=== PATIENT | male | born 1960 | race Caucasian/White ===

== ENCOUNTER → 2018-02-26 | Outpatient (CLI) | payer BC, OTHER ==
--- NOTE | 2018-02-26 22:15 | CT ---
EXAMINATION TYPE: CT abdomen pelvis w con DATE OF EXAM: 02/26/2018 COMPARISON: CT abdomen and pelvis February 23, 2016 HISTORY: Generalized abdominal pain x 1 year. Diverticulosis of intestine per order. CT DLP: 992 mGycm, Automated Exposure Control for Dose Reduction was Utilized. CONTRAST: CT scan of the abdomen and pelvis is performed with oral and with IV Contrast, patient injected with 100 mL of Isovue M300. FINDINGS: LUNG BASES: There is worsening anterior bibasilar linear scarring and/or atelectasis. LIVER/GB: The liver remains heterogeneously hypodense consistent with diffuse fatty infiltration. Gal lbladder has more superior left positioning on current study than normal dependent positioning. PANCREAS: Pancreatic duct is normal in size, duct is visualized but not suspiciously dilated. SPLEEN: No significant abnormality is seen. ADRENALS: No significant abnormality is seen. KIDNEYS: There is symmetric cortical medullary uptake and excretion from both kidneys without evidenc e of hydronephrosis bilaterally. There is subcentimeter low dense lesion exophytically medial aspect lower pole of the right kidney coronal image 42 that is diminished in size from prior exam. BOWEL: The oral contrast does not reach level of terminal ileum making evaluation of distal bowel sub optimal. There is persistent small to moderate size hiatal hernia. There is no suspicious small or la rge bowel dilatation. There are small bowel feces sign in terminal ileum consistent with delayed pass age of ingested material to colonic level. There are diverticula in the mid to distal colon most prom inent in the sigmoid colon. There is no convincing CT evidence for acute diverticulitis. PROSTATE/SEMINAL VESICLES: Central calcifications are seen in the upper limits of normal in size pros will gland. Adjacent phleboliths are seen. LYMPH NODES: No greater than 1cm abdominal or pelvic lymph nodes are appreciated. OSSEOUS STRUCTURES: There is mild multilevel spurring in the spine. OTHER: There is redemonstration of hazy fat stranding in the mid abdominal mesentery below level of t he pancreas with prominent but subcentimeter lymph nodes. IMPRESSION: 1. Karissa mesentery appearance is redemonstrated. Differential includes lymphedema, inflammation could be product of acute pancreatitis though this appears distinctly inferior to the normal sized pancrea s, neoplasm such as mesenteric lymphomas and differential, and mesenteric radiculitis. Other etiologi es not excluded. 2. Mid to distal colonic diverticulosis without CT evidence for acute diverticulitis.
== END ==
LOC: RADCTMAIN 17:59
PROVIDERS: ATTEND Family Medicine
DX: K57.90 Diverticulosis of intestine, part unspecified, without perforation or abscess without bleeding (principal)
CPT/HCPCS: 74177; Q9967

== ENCOUNTER 2019-05-09 19:16 | Inpatient (IN) | payer BC ==
--- NOTE | 2019-05-09 19:52 | ED ---
SOB HPI - General Chief Complaint: Shortness of Breath Stated Complaint: Bloated, needs fluid drained Time Seen by Provider: 05/09/19 19:23 Source: patient, RN notes reviewed, old records reviewed Mode of arrival: ambulatory Limitations: no limitations - History of Present Illness Initial Comments: This is a 58-year-old male date ER for evaluation patient with shortness of breath shortness breath is worse with exertion. Patient's everyday drinker with normal medical history does smoke and coming in for again shortness of breath. Abdominal distention ago is growing excessively as of late. Denies any history of medical disease or medical history. Takes no medications. No other complaints MD Complaint: shortness of breath (w exertion) -: days(s) Severity: moderate Severity scale (1-10): 7 Quality: dull (abdominal presure) Consistency: constant Improves With: nothing Worsens With: nothing Known History Of: other (ETOH abuse) Associated Symptoms: abdominal pain Treatments Prior to Arrival: none - Related Data Home Medications Medication Instructions Recorded Confirmed Folic Acid 0.4 mg PO DAILY 03/28/16 03/28/16 Allergies Allergy/AdvReac Type Severity Reaction Status Date / Time ragweed pollen Allergy Itching Verified 05/09/19 19:19 Review of Systems ROS Statement: Those systems with pertinent positive or pertinent negative responses have been documented in the HPI. ROS Other: All systems not noted in ROS Statement are negative. Past Medical History Past Medical History: No Reported History History of Any Multi-Drug Resistant Organisms: None Reported Past Surgical History: Orthopedic Surgery Additional Past Surgical History / Comment(s): ARTHRO OF LEFT KNEE Past Anesthesia/Blood Transfusion Reactions: Motion Sickness Past Psychological History: No Psychological Hx Reported Smoking Status: Current every day smoker Past Alcohol Use History: Daily, Heavy Past Drug Use History: None Reported General Exam Limitations: no limitations General appearance: alert, in no apparent distress Head exam: Present: atraumatic, normocephalic, normal inspection Eye exam: Present: normal appearance, PERRL, EOMI. Absent: scleral icterus, conjunctival injection, periorbital swelling ENT exam: Present: normal exam, mucous membranes moist Neck exam: Present: normal inspection. Absent: tenderness, meningismus, lympha denopathy Respiratory exam: Present: normal lung sounds bilaterally. Absent: respiratory distress, wheezes, rales, rhonchi, stridor Cardiovascular Exam: Present: normal rhythm, tachycardia, normal heart sounds. Absent: systolic murmur, diastolic murmur, rubs, gallop, clicks GI/Abdominal exam: Present: soft, distended, normal bowel sounds. Absent: tenderness, guarding, rebound, rigid Extremities exam: Present: normal inspection, full ROM, normal capillary refill. Absent: tenderness, pedal edema, joint swelling, calf tenderness Back exam: Present: normal inspection Neurological exam: Present: alert, oriented X3, CN II-XII intact Psychiatric exam: Present: normal affect, normal mood Skin exam: Present: warm, dry, intact, normal color. Absent: rash Course Vital Signs 05/09/19 05/09/19 19:17 21:02 Temperature 98.8 F Pulse Rate 107 H 80 Respiratory 20 16 Rate Blood Pressure 117/79 103/81 O2 Sat by Pulse 99 98 Oximetry - Reevaluation(s) Reevaluation #1: 05/09/19 21:50 Medical records reviewed Reevaluation #2: 05/09/19 21:50 She was still sniffly short of breath with significant abdominal pain - Consultations Consultation #1: Spoke with Dr. Clemons who was agreeable for admission Medical Decision Making - Medical Decision Making 58 male here for evaluation patient presents today for evaluation regards shortness of breath significant ascites likely will refer secondary all cause him. Patient will be admitted watching for a culture on GI evaluation - Lab Data Result diagrams: 05/09/19 20:07 05/09/19 20:07 Lab Results 05/09/19 05/09/19 05/09/19 Range/Units 20:07 20:07 20:07 WBC 8.4 (3.8-10.6) k/uL RBC 3.78 L (4.30-5.90) m/uL Hgb 12.6 L (13.0-17.5) gm/dL Hct 37.2 L (39.0-53.0) % MCV 98.6 (80.0-100.0) fL MCH 33.3 (25.0-35.0) pg MCHC 33.8 (31.0-37.0) g/dL RDW 13.7 (11.5-15.5) % Plt Count 314 (150-450) k/uL Neutrophils % 73 % Lymphocytes % 15 % Monocytes % 8 % Eosinophils % 0 % Basophils % 0 % Neutrophils # 6.1 (1.3-7.7) k/uL Lymphocytes # 1.2 (1.0-4.8) k/uL Monocytes # 0.7 (0-1.0) k/uL Eosinophils # 0.0 (0-0.7) k/uL Basophils # 0.0 (0-0.2) k/uL PT (9.0-12.0) sec INR (<1.2) APTT (22.0-30.0) sec Sodium 136 L (137-145) mmol/L Potassium 3.5 (3.5-5.1) mmol/L Chloride 99 (98-107) mmol/L Carbon Dioxide 26 (22-30) mmol/L Anion Gap 11 mmol/L BUN 13 (9-20) mg/dL Creatinine 0.54 L (0.66-1.25) mg/dL Est GFR (CKD-EPI)AfAm >90 (>60 ml/min/1.73 sqM) Est GFR (CKD-EPI)NonAf >90 (>60 ml/min/1.73 sqM) Glucose 111 H (74-99) mg/dL Calcium 8.6 (8.4-10.2) mg/dL Phosphorus 3.5 (2.5-4.5) mg/dL Magnesium 1.6 (1.6-2.3) mg/dL Total Bilirubin 1.1 (0.2-1.3) mg/dL AST 63 H (17-59) U/L ALT 27 (21-72) U/L Alkaline Phosphatase 90 (38-126) U/L Ammonia <9 (<30) umol/L Creatine Kinase 47 L (55-170) U/L Troponin I (0.000-0.034) ng/mL NT-Pro-B Natriuret Pep pg/mL Total Protein 6.9 (6.3-8.2) g/dL Albumin 3.4 L (3.5-5.0) g/dL Urine Color Urine Appearance (Clear) Urine pH (5.0-8.0) Ur Specific [place] (1.001-1.035) Urine Protein (Negative) Urine Glucose (UA) (Negative) Urine Ketones (Negative) Urine Blood (Negative) Urine Nitrite (Negative) Urine Bilirubin (Negative) Urine Urobilinogen (<2.0) mg/dL Ur Leukocyte Esterase (Negative) Urine RBC (0-5) /hpf Urine WBC (0-5) /hpf Ur Squamous Epith Cells (0-4) /hpf Calcium Oxalate Crystal (None) /hpf Hyaline Casts (0-2) /lpf Urine Mucus (None) /hpf 05/09/19 05/09/19 05/09/19 Range/Units 20:07 20:07 20:07 WBC (3.8-10.6) k/uL RBC (4.30-5.90) m/uL Hgb (13.0-17.5) gm/dL Hct (39.0-53.0) % MCV (80.0-100.0) fL MCH (25.0-35.0) pg MCHC (31.0-37.0) g/dL RDW (11.5-15.5) % Plt Count (150-450) k/uL Neutrophils % % Lymphocytes % % Monocytes % % Eosinophils % % Basophils % % Neutrophils # (1.3-7.7) k/uL Lymphocytes # (1.0-4.8) k/uL Monocytes # (0-1.0) k/uL Eosinophils # (0-0.7) k/uL Basophils # (0-0.2) k/uL PT 11.5 (9.0-12.0) sec INR 1.1 (<1.2) APTT 28.6 (22.0-30.0) sec Sodium (137-145) mmol/L Potassium (3.5-5.1) mmol/L Chloride (98-107) mmol/L Carbon Dioxide (22-30) mmol/L Anion Gap mmol/L BUN (9-20) mg/dL Creatinine (0.66-1.25) mg/dL Est GFR (CKD-EPI)AfAm (>60 ml/min/1.73 sqM) Est GFR (CKD-EPI)NonAf (>60 ml/min/1.73 sqM) Glucose (74-99) mg/dL Calcium (8.4-10.2) mg/dL Phosphorus (2.5-4.5) mg/dL Magnesium (1.6-2.3) mg/dL Total Bilirubin (0.2-1.3) mg/dL AST (17-59) U/L ALT (21-72) U/L Alkaline Phosphatase (38-126) U/L Ammonia (<30) umol/L Creatine Kinase (55-170) U/L Troponin I <0.012 (0.000-0.034) ng/mL NT-Pro-B Natriuret Pep 363 pg/mL Total Protein (6.3-8.2) g/dL Albumin (3.5-5.0) g/dL Urine Color Urine Appearance (Clear) Urine pH (5.0-8.0) Ur Specific Rosalia (1.001-1.035) Urine Protein (Negative) Urine Glucose (UA) (Negative) Urine Ketones (Negative) Urine Blood (Negative) Urine Nitrite (Negative) Urine Bilirubin (Negative) Urine Urobilinogen (<2.0) mg/dL Ur Leukocyte Esterase (Negative) Urine RBC (0-5) /hpf Urine WBC (0-5) /hpf Ur Squamous Epith Cells (0-4) /hpf Calcium Oxalate Crystal (None) /hpf Hyaline Casts (0-2) /lpf Urine Mucus (None) /hpf 05/09/19 Range/Units 20:07 WBC (3.8-10.6) k/uL RBC (4.30-5.90) m/uL Hgb (13.0-17.5) gm/dL Hct (39.0-53.0) % MCV (80.0-100.0) fL MCH (25.0-35.0) pg MCHC (31.0-37.0) g/dL RDW (11.5-15.5) % Plt Count (150-450) k/uL Neutrophils % % Lymphocytes % % Monocytes % % Eosinophils % % Basophils % % Neutrophils # (1.3-7.7) k/uL Lymphocytes # (1.0-4.8) k/uL Monocytes # (0-1.0) k/uL Eosinophils # (0-0.7) k/uL Basophils # (0-0.2) k/uL PT (9.0-12.0) sec INR (<1.2) APTT (22.0-30.0) sec Sodium (137-145) mmol/L Potassium (3.5-5.1) mmol/L Chloride (98-107) mmol/L Carbon Dioxide (22-30) mmol/L Anion Gap mmol/L BUN (9-20) mg/dL Creatinine (0.66-1.25) mg/dL Est GFR (CKD-EPI)AfAm (>60 ml/min/1.73 sqM) Est GFR (CKD-EPI)NonAf (>60 ml/min/1.73 sqM) Glucose (74-99) mg/dL Calcium (8.4-10.2) mg/dL Phosphorus (2.5-4.5) mg/dL Magnesium (1.6-2.3) mg/dL Total Bilirubin (0.2-1.3) mg/dL AST (17-59) U/L ALT (21-72) U/L Alkaline Phosphatase (38-126) U/L Ammonia (<30) umol/L Creatine Kinase (55-170) U/L Troponin I (0.000-0.034) ng/mL NT-Pro-B Natriuret Pep pg/mL Total Protein (6.3-8.2) g/dL Albumin (3.5-5.0) g/dL Urine Color [place] Urine Appearance Clear (Clear) Urine pH 6.0 (5.0-8.0) Ur Specific Rosalia 1.031 (1.001-1.035) Urine Protein 1+ H (Negative) Urine Glucose (UA) Negative (Negative) Urine Ketones Trace H (Negative) Urine Blood Negative (Negative) Urine Nitrite Negative (Negative) Urine Bilirubin 1+ H (Negative) Urine Urobilinogen >12.0 (<2.0) mg/dL Ur Leukocyte Esterase Negative (Negative) Urine RBC <1 (0-5) /hpf Urine WBC 2 (0-5) /hpf Ur Squamous Epith Cells 2 (0-4) /hpf Calcium Oxalate Crystal Occasional H (None) /hpf Hyaline Casts 7 H (0-2) /lpf Urine Mucus Many H (None) /hpf - EKG Data -: EKG Interpreted by Me (EKG shows sinus rhythm rate of 94, IN 140, temperature is 90, QTc 447) Disposition Clinical Impression: Ascites Disposition: ADMITTED IP TO THIS HOSP Condition: Fair Is patient prescribed a controlled substance at d/c from ED?: No Referrals: Emilie Hoover DO [Primary Care Provider] - 1-2 days
[2019-05-09 20:16] LABS: Basophils % (A) 0 %; Eosinophils % (A) 0 %; HCT 37.2 % (39.0-53.0); HGB 12.6 gm/dL (13.0-17.5); Lymphocytes # (A) 1.2 k/uL (1.0-4.8); Lymphocytes % (A) 15 %; MCH 33.3 pg (25.0-35.0); MCHC 33.8 g/dL (31.0-37.0); MCV 98.6 fL (80.0-100.0); Mean Platelet Volume 7.1; Monocytes # (A) 0.7 k/uL (0-1.0); Monocytes % (A) 8 %; Neutrophils # (A) 6.1 k/uL (1.3-7.7); Neutrophils % (A) 73 %; Platelet Count 314 k/uL (150-450); RBC 3.78 m/uL (4.30-5.90); RDW 13.7 % (11.5-15.5); WBC 8.4 k/uL (3.8-10.6)
[2019-05-09 20:26] LABS: ALT 27 U/L (21-72); AST 63 U/L (17-59); African American GFR (CKD) >90 (>60 ml/min/1.73 sqM); Albumin 3.4 g/dL (3.5-5.0); Alkaline Phosphatase 90 U/L (38-126); Anion Gap 11 mmol/L; Blood Urea Nitrogen 13 mg/dL (9-20); Calcium 8.6 mg/dL (8.4-10.2); Carbon Dioxide 26 mmol/L (22-30); Chloride 99 mmol/L (98-107); Creatine Kinase 47 U/L (55-170); Glucose 111 mg/dL (74-99); Magnesium 1.6 mg/dL (1.6-2.3); Non-African American GFR(CKD) >90 (>60 ml/min/1.73 sqM); Phosphorus 3.5 mg/dL (2.5-4.5); Potassium 3.5 mmol/L (3.5-5.1); Sodium 136 mmol/L (137-145); Total Bilirubin 1.1 mg/dL (0.2-1.3); Total Protein 6.9 g/dL (6.3-8.2)
[2019-05-09 20:28] LABS: Appearance,Urine Clear (Clear); Bilirubin,Urine 1+ (Negative); Blood,Urine Negative (Negative); Calcium Oxalate Crystals,Urine Occasional /hpf; Color,Urine Orange; Glucose,Urine (UA) Negative (Negative); Hyaline Casts,Urine 7 /lpf (0-2); Ketones,Urine Trace (Negative); Leukocyte Esterase,Urine Negative (Negative); Mucus,Urine Many /hpf; Nitrite,Urine Negative (Negative); Protein,Urine 1+ (Negative); RBC,Urine <1 /hpf (0-5); Specific Gravity,Urine 1.031 (1.001-1.035); Squamous Epithelial Cell,Urine 2 /hpf (0-4); Urobilinogen,Urine >12.0 mg/dL (<2.0); WBC,Urine 2 /hpf (0-5)
[2019-05-09 20:35] LABS: INR 1.1 (<1.2); Partial Thromboplastin Time 28.6 sec (22.0-30.0); Prothrombin Time 11.5 sec (9.0-12.0)
--- NOTE | 2019-05-09 20:55 | XR ---
EXAMINATION: XR chest 2V DATE AND TIME: 05/09/2019 8:25 PM CLINICAL INDICATION: PHH; Weakness TECHNIQUE: Departmental protocol COMPARISON: 11/14/2010 FINDINGS: The lungs are clear. The pleural spaces are negative. The cardiac silhouette is not enlarged. The remainder of the mediastinal silhouette is unremarkable. The skeletal structures and soft tissues are negative for acute findings. IMPRESSION: NO ACUTE PROCESS.
[2019-05-09] MEDS ORDERED: THIAMINE 100 MG/ML 2 ML VIAL IM STA (21:45)
[2019-05-09] MEDS ORDERED: LORazepam 2 MG/ML INJ IV PRN ×2 (21:45)
[2019-05-09] MEDS ORDERED: ONDANSETRON 4 MG/2 ML VIAL IVP STA (21:45)
[2019-05-09] MEDS: THIAMINE 100 MG TAB PO SCH (21:52)
[2019-05-09] MEDS ORDERED: IPRATROPIUM-ALBUTEROL 3 ML NEB INHALATION PRN (21:52)
[2019-05-09] MEDS ORDERED: IPRATROPIUM-ALBUTEROL 3 ML NEB INHALATION STA (21:52)
[2019-05-09] MEDS: DEXTROSE 5%-0.45% NACL 1,000 ML IV SCH (22:05)
[2019-05-09] MEDS ORDERED: NICOTINE 21MG/24HR PATCH TRANSDERM STA (22:07)
[2019-05-09] MEDS: LORazepam 2 MG/ML INJ IV PRN (22:13)
[2019-05-10] MEDS: THIAMINE 100 MG TAB PO SCH ×2 (08:01→17:49)
[2019-05-10] MEDS ORDERED: ENOXAPARIN 40 MG/0.4 ML SYRINGE SQ SCH (09:00)
[2019-05-10] MEDS: DEXTROSE 5%-0.45% NACL 1,000 ML IV SCH (10:47)
[2019-05-10] MEDS ORDERED: cloNIDine HCL 0.1 MG TAB PO PRN (11:06)
--- NOTE | 2019-05-10 11:08 | P.HPIM ---
History of Present Illness H&P Date: 05/10/19 Chief Complaint: dyspnea, abd distention Edwin Salomon is a 58 yo M with PMH of alcholism who presents to the ED complaining of 2 month duration of increasing abdominal distention and shortness of breath. He initially presented to the outpatient clinic and was advised to go to the ED. He has no other past medical history. Pt states that he has drank a fifth of whiskey daily for over 20 years. He states at various points in his life he as drank slightly more or less but has continued to be a daily drinker, endorses withdrawal sx every morning. He notes that his abdomen has become more swollen over the past few months and he has had little appetite for anything other than alcohol. Pt feels he is not able to take a deep breath due to his swelling. He complains of nausea as well. Has never had an EGD or seen GI. In the ED his vitals were stable, labs significant for mildly elevated AST, Hgb 12, albumin 3.4, INR 1.1. Review of Systems All systems: negative Constitutional: Reports fatigue, Reports malaise, Reports night sweats, Reports poor appetite, Denies chills, Denies fever Eyes: denies blurred vision, denies pain Ears, nose, mouth and throat: Denies headache, Denies sore throat Cardiovascular: Denies chest pain, Denies shortness of breath Respiratory: Denies cough Gastrointestinal: Reports as per HPI, Reports abdominal pain, Reports early satiety, Reports loss of appetite, Reports nausea, Denies diarrhea, Denies hematemesis, Denies vomiting Musculoskeletal: Denies myalgias Integumentary: Denies pruritus, Denies rash Neurological: Denies numbness, Denies weakness Psychiatric: Denies anxiety, Denies depression Endocrine: Denies fatigue, Denies weight change Past Medical History Past Medical History: No Reported History History of Any Multi-Drug Resistant Organisms: None Reported Past Surgical History: Orthopedic Surgery Additional Past Surgical History / Comment(s): ARTHRO OF LEFT KNEE Past Anesthesia/Blood Transfusion Reactions: Motion Sickness Past Psychological History: No Psychological Hx Reported Smoking Status: Current every day smoker Past Alcohol Use History: Daily, Heavy Additional Past Alcohol Use History / Comment(s): SMOKED SINCE 11 YRS, LESS THAN 2 PPD. PATIENT ADMITS TO BEING AN ALCOHOLIC (A FIFTH A DAY). Past Drug Use History: None Reported - Past Family History Mother Family Medical History: No Reported History Medications and Allergies Home Medications Medication Instructions Recorded Confirmed Type Ensure 1 can PO BID 05/09/19 05/09/19 History Allergies Allergy/AdvReac Type Severity Reaction Status Date / Time ragweed pollen Allergy Itching Verified 05/09/19 22:03 Physical Exam Vitals: Vital Signs Temp Pulse Pulse Resp BP BP Pulse Ox 05/10/19 05:35 97.7 F 106 H 17 104/55 95 05/10/19 00:00 20 05/09/19 23:00 98.2 F 93 20 109/69 05/09/19 22:32 101 H 18 05/09/19 22:26 101 H 16 05/09/19 21:48 97 18 110/95 97 05/09/19 21:02 80 16 103/81 98 05/09/19 19:17 98.8 F 107 H 20 117/79 99 Intake and Output 05/09/19 05/10/19 05/10/19 22:59 06:59 14:59 Intake Total 480 Balance 480 Intake: Intake, IV Titration 480 Amount Dextrose 5%-0.45% NaCl 1, 480 000 ml @ 80 mls/hr IV . [id number] [facility] Rx#:[id number] Oral 0 Other: Voiding Method Urinal # Voids 1 Weight 78.018 kg General: anasarca, NAD. Vitals reviewed Eyes: PERRL, EOMI, conjunctiva normal. No scleral icterus HENT: normocephalic, mucus membranes moist Neck: supple, no JVD Lungs: normal respiratory effort, no wheezes or rales CV: Regular rate and rhythm, no murmur. Peripheral pulses 2+ Abdomen: soft, distended. Generalized tenderness. Fluid wave present Lymph: no cervical or axillary LAD Skin: warm and dry. Neuro: A&Ox3, normal mood and affect Results CBC & Chem 7: 05/09/19 20:07 05/09/19 20:07 Labs: Abnormal Lab Results - Last 24 Hours (Table) 05/09/19 05/09/19 05/09/19 Range/Units 20:07 20:07 20:07 RBC 3.78 L (4.30-5.90) m/uL Hgb 12.6 L (13.0-17.5) gm/dL Hct 37.2 L (39.0-53.0) % Sodium 136 L (137-145) mmol/L Creatinine 0.54 L (0.66-1.25) mg/dL Glucose 111 H (74-99) mg/dL AST 63 H (17-59) U/L Creatine Kinase 47 L (55-170) U/L Albumin 3.4 L (3.5-5.0) g/dL Urine Protein 1+ H (Negative) Urine Ketones Trace H (Negative) Urine Bilirubin 1+ H (Negative) Calcium Oxalate Crystal Occasional H (None) /hpf Hyaline Casts 7 H (0-2) /lpf Urine Mucus Many H (None) /hpf Thrombosis Risk Factor Assmnt - Choose All That Apply Any of the Below Risk Factors Present?: Yes Each Factor Represents 1 point: Age 41-60 years, Swollen legs (current) Thrombosis Risk Factor Assessment Total Risk Factor Score: 2 Thrombosis Risk Factor Assessment Level: Low Risk Assessment and Plan (1) Alcoholic cirrhosis of liver with ascites Current Visit: Yes Status: Acute Code(s): K70.31 - ALCOHOLIC CIRRHOSIS OF LIVER WITH ASCITES SNOMED Code(s): 741332188 (2) Abdominal pain Current Visit: Yes Status: Acute Code(s): R10.9 - UNSPECIFIED ABDOMINAL PAIN SNOMED Code(s): 97913358 (3) Anemia in chronic illness Current Visit: Yes Status: Acute Code(s): D63.8 - ANEMIA IN OTHER CHRONIC DISEASES CLASSIFIED ELSEWHERE SNOMED Code(s): 775906999 (4) Elevated AST (SGOT) Current Visit: Yes Status: Acute Code(s): R74.0 - NONSPEC ELEV OF LEVELS OF TRANSAMNS & LACTIC ACID DEHYDRGNSE SNOMED Code(s): 067836855 (5) Alcohol withdrawal Current Visit: Yes Status: Acute Code(s): F10.239 - ALCOHOL DEPENDENCE WITH WITHDRAWAL, UNSPECIFIED SNOMED Code(s): 832056428 Plan: 1. Cirrhosis of liver with ascites. PPI bid. IR consulted for paracentesis. GI consult for further recs 2. Alcohol withdrawal. CIWA protocol. Clonidine symptomatically DVT prophylaxis SCDs
[2019-05-10] MEDS: ONDANSETRON 4 MG/2 ML VIAL IVP PRN (11:19)
[2019-05-10] MEDS: PANTOPRAZOLE 40 MG TABLET PO SCH ×2 (11:19→16:53)
--- NOTE | 2019-05-10 15:58 | US ---
Therapeutic paracentesis. DATE OF EXAM: 05/10/2019 CLINICAL HISTORY: Ascites The procedure was discussed with the patient. The risks, complications, benefits, and alternatives we re discussed and any questions were answered. Informed consent was obtained. The patient was placed s upine on the ultrasound table and prepped and draped in the usual sterile fashion. All elements of maximal barrier technique were utilized. Under ultrasound guidance, access into the right lower quadrant was obtained, via the paracentesis catheter system and direct ultrasound guidanc e. Approximately 7 liters of straw-colored fluid was removed. The patient was stable throughout the proc edure and remained stable upon discharge from Department of Radiology. IMPRESSION: Successful therapeutic paracentesis under ultrasound guidance.
[2019-05-10] MEDS: ALBUMIN HUMAN 25% 50 ML in EMPTY BAG 1 BAG IVPB SCH ×3 (16:51→17:45)
[2019-05-10 18:30] LABS: Appearance,BF Clear
[2019-05-10 18:31] LABS: Mononuclear WBC,Body Fluid 94 %; Nucleated Cells, Body Fluid 38 /uL; Polynuclear WBC,Body Fluid 6 %; RBC, Body Fluid 76 /uL; Total Cells Counted,Body Fluid 100
--- NOTE | 2019-05-10 21:45 | CONS ---
CONSULTATION DATE OF DICTATION: 05/10/2019 REASON FOR CONSULTATION: Ascites. HISTORY OF PRESENT ILLNESS: The patient is a 58-year-old white male with history of heavy alcoholism in the past who drinks about a fifth a day for the last several years. He was admitted to the hospital with abdominal distention for the last several weeks' duration. He also complains of shortness of breath. He came into the emergency room and we are consulted for possible ascites. The patient denies any prior history of chronic liver disease. He has been drinking almost a fifth a day for 30 years. He recalls having a colonoscopy about 5 years ago but never had an EGD in the past. He denies any nausea, vomiting. Reports no rectal bleeding or melena. PAST MEDICAL HISTORY: His past medical history is significant for heavy alcohol abuse. He has not seen doctors in a while. PAST SURGICAL HISTORY: Arthroscopy of the left knee. MEDICATIONS AT HOME: None. ALLERGIES: NO KNOWN DRUG ALLERGIES. SOCIAL HISTORY: Chronic smoker and alcohol use as mentioned above. FAMILY HISTORY: Unremarkable. REVIEW OF SYSTEMS: CARDIOPULMONARY: No chest pain or shortness of breath. GENITOURINARY: No dysuria or hematuria. MUSCULOSKELETAL: Unremarkable. SKIN: Unremarkable. ENDOCRINE: Unremarkable. PSYCHIATRIC: Unremarkable. NEUROLOGY: Unremarkable. ENT/VISION: Unremarkable. CONSTITUTIONAL: No recent weight loss. No fever, chills, night sweats. PHYSICAL EXAMINATION: He appears comfortable. No apparent distress. Vital signs are stable. Blood pressure is 111/60, pulse rate 80, temperature 98.4. HEENT examination unremarkable. Conjunctivae pink. Sclerae anicteric. Oral cavity no lesions. NECK: No JVD or lymph node enlargement. CHEST: Clear to auscultation. HEART: Regular rate and rhythm. ABDOMEN: Distended. Significant amount of free fluid noted in the abdomen. Liver and spleen are not palpable. EXTREMITIES: Two plus pedal edema. SKIN: No rashes. NEUROLOGIC: Alert and oriented x3. No focal deficits. LABS: WBC 8.4, hemoglobin 12.6, platelets normal. Basic metabolic panel is within normal limits. INR is 1.1. AST 63, ALT 27. T-bilirubin and alkaline phosphatase are normal. IMPRESSION: 1. Abdominal distention secondary to new-onset ascites, possibly related to alcoholic liver disease. 2. History of heavy alcohol abuse. 3. Mild elevation of liver function tests with AST more than ALT, consistent with alcoholic liver disease. 4. Mild anemia, but clinically no evidence of active bleeding. RECOMMENDATIONS: 1. Patient will be scheduled for large-volume paracentesis for diagnostic and therapeutic purposes. The fluid will be analyzed for albumin, cytology, cell count and protein. 2. In the meantime, we will start him on Lasix 40 mg daily and Aldactone 100 mg daily. 3. Low-salt diet. 4. Hepatitis serologies for A, B and C. 5. Will follow with you closely. Thank you for this consultation. MMODL / IJN: [id number] /
[2019-05-10 22:13] LABS: Hepatitis A Antibody IgM Non-Reactive (Non-Reactive); Hepatitis B Core IgM Non-Reactive (Non-Reactive); Hepatitis B Surface Antigen Non-Reactive (Non-Reactive); Hepatitis C IgG Antibody Reactive (Non-Reactive)
[2019-05-10 23:51] LABS: Glucose, BF Source Ascites; Glucose, Body Fluid 120 mg/dL; LDH, Body Fluid Source Ascites
[2019-05-11 00:41] LABS: Total Protein, Body Fluid 1861 mg/dL
[2019-05-11] MEDS: DEXTROSE 5%-0.45% NACL 1,000 ML IV SCH ×2 (00:55→14:49)
[2019-05-11 07:56] LABS: ALT 27 U/L (21-72); AST 52 U/L (17-59); African American GFR (CKD) >90 (>60 ml/min/1.73 sqM); Albumin 2.6 g/dL (3.5-5.0); Alkaline Phosphatase 59 U/L (38-126); Anion Gap 7 mmol/L; Blood Urea Nitrogen 8 mg/dL (9-20); Calcium 7.9 mg/dL (8.4-10.2); Carbon Dioxide 25 mmol/L (22-30); Chloride 101 mmol/L (98-107); Glucose 125 mg/dL (74-99); Non-African American GFR(CKD) >90 (>60 ml/min/1.73 sqM); Potassium 3.2 mmol/L (3.5-5.1); Sodium 133 mmol/L (137-145); Total Bilirubin 1.1 mg/dL (0.2-1.3); Total Protein 5.4 g/dL (6.3-8.2)
[2019-05-11] MEDS: FUROSEMIDE 40 MG TAB PO SCH (09:11)
[2019-05-11] MEDS: SPIRONOLACTONE 25 MG TAB PO SCH (09:11)
[2019-05-11] MEDS: THIAMINE 100 MG TAB PO SCH ×2 (09:11→17:02)
[2019-05-11] MEDS: PANTOPRAZOLE 40 MG TABLET PO SCH ×2 (09:11→17:02)
[2019-05-11] MEDS: LORazepam 2 MG/ML INJ IV PRN ×2 (09:21→22:31)
[2019-05-11] MEDS: ONDANSETRON 4 MG/2 ML VIAL IVP PRN (09:21)
--- NOTE | 2019-05-11 10:32 | PN ---
PROGRESS NOTE DATE OF DICTATION: May 11, 2019. REQUESTING PHYSICIAN: Dr. Bartolo Clemons. BRIEF HISTORY: The patient is a 58-year-old pleasant white male with history of alcoholic cirrhosis of the liver, admitted to the hospital with new onset ascites. He underwent large-volume paracentesis yesterday and several liters removed. He was started on Lasix 40 mg daily and Aldactone 100 mg daily. He is feeling better today. He denies any complaints. Reports no abdominal pain. No fever, chills, or night sweats. PHYSICAL EXAMINATION: He appears comfortable. No apparent distress. VITAL SIGNS: Stable. Blood pressure is 108/86, pulse rate 84 per minute and afebrile. HEENT examination unremarkable. Conjunctivae pink. Sclerae anicteric. Oral cavity no lesions. NECK: No JVD or lymph node enlargement. CHEST was clear to auscultation. HEART: Regular rate and rhythm. ABDOMEN: Soft. Bowel sounds are positive. There was some free fluid noted in the abdomen. EXTREMITIES: No pedal edema. SKIN: No rashes. NEURO: He is alert and oriented x3. No focal deficits. LABS: From lab from today: WBC 8.4, hemoglobin 12.6, platelets normal. Sodium 133, potassium 3.2, BUN 8, creatinine 0.47. Fluid analysis: Fluid albumin 1.20, fluid protein 1.8, WBC 6. Serum albumin was 3.4. Serum ascites albumin gradient more than 1.1. Hepatitis serologies for C were positive. Hepatitis B was negative. IMPRESSION: 1. Alcoholic cirrhosis of the liver with portal hypertension. 2. New onset ascites status post large-volume paracentesis, several liters of fluid was removed for fluid analysis consistent with portal hypertension. No evidence of peritonitis. Presently on Lasix 40 mg daily and Aldactone 100 mg daily and low-salt diet. 3. Positive hepatitis C antibody. Rule out chronic hepatitis C infection. RECOMMENDATIONS: 1. Abstinence from alcohol. 2. Continue current diuretic regimen. 3. Low-salt diet. 4. Obtain hepatitis C HCV RNA by PCR to evaluate for chronic hepatitis C infection. Thank you for this consultation. MMODL / IJN: [id number] /
[2019-05-11 12:35] LABS: Appearance,Urine Clear (Clear); Bilirubin,Urine Negative (Negative); Blood,Urine Negative (Negative); Color,Urine Yellow; Glucose,Urine (UA) Negative (Negative); Ketones,Urine Negative (Negative); Leukocyte Esterase,Urine Negative (Negative); Nitrite,Urine Negative (Negative); PH, Urine 6.5 (5.0-8.0); Protein,Urine Negative (Negative); Specific Gravity,Urine 1.009 (1.001-1.035)
[2019-05-11 12:42] VITALS: BMI 23.3
--- NOTE | 2019-05-11 13:07 | P.PN ---
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 Clemons over the weekend. Mr. Salomon is a 58-year-old male with a past medical history of alcoholism coming into the emergency Department with the chief complaint of increasing abdominal girth and difficulty in breathing. Patient has history of alcohol dependence. In the emergency he was found to have mildly elevated liver function tests and admitted for further management. On 05/11/2019 - patient had paracentesis done yesterday with removal of 7040 mL fluid. Patient received albumin after the paracentesis. This morning he is sitting comfortably in the bed appears to be no acute distress. As per the nursing staff report that his decreased urinary output. Patient made only 30-40 mL of urine since this morning. Patient states that he is not having any complaints of dysuria, mentions that he always has blood in his urine and it is pink in color. Patient denies having any lower abdominal pain or flank pain. No fevers chills or rigors. On review of systems he denies having any chest pain or palpitations. No nausea vomiting or abdominal pain. After the paracentesis he feels much better in terms of his difficulty in breathing. Patient denies having any swelling of his lower extremities. Patient's labs and medications have been reviewed. Active Medications Albuterol/Ipratropium (Duoneb 0.5 Mg-3 Mg/3 Ml Soln) 3 ml INHALATION RT-QID PRN PRN Reason: Shortness Of Breath Or Wheezing Clonidine (Catapres) 0.1 mg PO BID PRN PRN Reason: Heart Rate - HIGH Furosemide (Lasix) 40 mg PO DAILY [facility] Last Admin: 05/11/19 09:11 Dose: 40 mg Documented by: Dextrose/Sodium Chloride (Dextrose 5%-1/2ns Iv Soln) 1,000 mls @ 80 mls/hr IV .[id number] [facility] Last Admin: 05/11/19 00:55 Dose: 80 mls/hr Documented by: Lorazepam (Ativan) 1 mg IV Q2HR PRN PRN Reason: CIWA 8 or 9 Last Admin: 05/11/19 09:21 Dose: 1 mg Documented by: Lorazepam (Ativan) 1 mg IV Q1HR PRN PRN Reason: CIWA 10 to 15 Lorazepam (Ativan) 2 mg IV Q10M PRN PRN Reason: CIWA 16 or higher Stop: 05/11/19 21:45 Ondansetron HCl (Zofran) 4 mg IVP Q6HR PRN PRN Reason: Nausea And Vomiting Last Admin: 05/11/19 09:21 Dose: 4 mg Documented by: Pantoprazole Sodium (Protonix) 40 mg PO AC-BID [facility] Last Admin: 05/11/19 09:11 Dose: 40 mg Documented by: Spironolactone (Aldactone) 100 mg PO DAILY [facility] Last Admin: 05/11/19 09:11 Dose: 100 mg Documented by: Thiamine HCl (Vitamin B-1) 100 mg PO BID-W/MEALS [facility] Last Admin: 05/11/19 09:11 Dose: 100 mg Documented by: Objective - Vital Signs Vital signs: Vital Signs Temp 98.1 F 05/11/19 12:53 Pulse 72 05/11/19 12:53 Resp 17 05/11/19 12:53 BP 103/69 05/11/19 12:53 Pulse Ox 98 05/11/19 12:53 Intake & Output 05/10/19 05/11/19 05/11/19 18:59 06:59 18:59 Intake Total 1200 240 Output Total 300 Balance 1200 -60 Weight 78.018 kg Intake: Intake, IV Titration 960 240 Amount Dextrose 5%-0.45% NaCl 1, 960 240 000 ml @ 80 mls/hr IV . [id number] [facility] Rx#:[id number] Oral 240 Output: Urine 300 Other: Voiding Method Urinal Urinal Urinal # Voids 2 - Exam General: Pt is sitting comfortably in the bed appears to be in acute distress. Eyes: PERRL, EOMI, no pallor. No icterus. HENT: normocephalic, mucus membranes moist Lungs: Bilateral breath sounds are positive, no wheezes or crackles CV: Regular rate and rhythm, no murmur. Abdomen: soft, non - distended. No tenderness. Lymph: no cervical or axillary LAD Skin: warm and dry. Neuro: A&Ox3, no focal neurological deficits. - Labs CBC & Chem 7: 05/09/19 20:07 05/11/19 07:03 Labs: Abnormal Lab Results - Last 24 Hours (Table) 05/09/19 05/11/19 Range/Units 20:07 07:03 Sodium 133 L (137-145) mmol/L Potassium 3.2 L (3.5-5.1) mmol/L BUN 8 L (9-20) mg/dL Creatinine 0.47 L (0.66-1.25) mg/dL Glucose 125 H (74-99) mg/dL Calcium 7.9 L (8.4-10.2) mg/dL Total Protein 5.4 L (6.3-8.2) g/dL Albumin 2.6 L (3.5-5.0) g/dL Hep C IgG Ab Reactive H (Non-Reactive) Microbiology - Last 24 Hours (Table) 05/10/19 14:47 Gram Stain - Preliminary Paracentesis Fluid Body Fluid Culture - Preliminary 05/10/19 14:47 Anaerobic Culture - Preliminary Ascites Fluid Assessment and Plan Assessment: ASSESSMENT All colic cirrhosis of the liver with ascites Elevated LFTs Anemia of chronic disease Mild protein calorie malnutrition PLAN : Will get urine analysis. Patient's hepatitis panel is back , positive for hepatitis C. Continue with CIWA protocol. Continue with the current medication regimen. GI on board and following the patient. Further recommend ations depending on the progress of the patient.
[2019-05-11] MEDS: POTASSIUM CHLORIDE ER 20 MEQ TAB.ER PO SCH ×2 (14:43→17:03)
[2019-05-12] MEDS: DEXTROSE 5%-0.45% NACL 1,000 ML IV SCH ×2 (03:40→18:37)
[2019-05-12 08:03] LABS: ALT 29 U/L (21-72); AST 66 U/L (17-59); African American GFR (CKD) >90 (>60 ml/min/1.73 sqM); Alkaline Phosphatase 72 U/L (38-126); Anion Gap 8 mmol/L; Blood Urea Nitrogen 9 mg/dL (9-20); Calcium 8.3 mg/dL (8.4-10.2); Carbon Dioxide 27 mmol/L (22-30); Chloride 98 mmol/L (98-107); Glucose 97 mg/dL (74-99); Non-African American GFR(CKD) >90 (>60 ml/min/1.73 sqM); Potassium 3.5 mmol/L (3.5-5.1); Sodium 133 mmol/L (137-145); Total Bilirubin 1.1 mg/dL (0.2-1.3); Total Protein 6.2 g/dL (6.3-8.2)
[2019-05-12] MEDS: THIAMINE 100 MG TAB PO SCH ×2 (09:40→17:23)
[2019-05-12] MEDS: FUROSEMIDE 40 MG TAB PO SCH (09:40)
[2019-05-12] MEDS: SPIRONOLACTONE 25 MG TAB PO SCH (09:40)
[2019-05-12] MEDS: PANTOPRAZOLE 40 MG TABLET PO SCH ×2 (09:40→17:23)
--- NOTE | 2019-05-12 09:47 | PN ---
PROGRESS NOTE DATE OF DICTATION: May 12, 2019 Patient is a 58-year-old pleasant white male admitted to the hospital with new onset ascites and possible alcoholic liver disease. The patient has history of heavy alcohol abuse for 30 years. He underwent large-volume paracentesis. 7 L of fluid was aspirated and fluid analysis consistent with portal hypertension. Patient presently started on Lasix 40 mg daily and spironolactone 100 mg daily. He is doing better. He denies any symptoms. Further workup revealed a positive hepatitis C antibody. An HCV RNA is still pending. PHYSICAL EXAMINATION: He appears comfortable. No apparent distress. Vital signs stable. Blood pressure 97/61, pulse 88, temperature 98.4. HEENT examination unremarkable. Conjunctivae pink. Sclerae anicteric. Oral cavity no lesions. NECK: No JVD or lymph node enlargement. CHEST: Clear to auscultation. HEART: Regular rate and rhythm. ABDOMEN: Soft, slightly distended. Some free fluid noted. EXTREMITIES: No pedal edema. SKIN: No rashes. NEUROLOGICAL: Alert and oriented x3. No focal deficits. LABS: Done today sodium 133, potassium 3.5, BUN 9, creatinine 0.56, AST 66, ALT 29, T-bili and alkaline phosphatase are normal. Hepatitis C RNA pending. IMPRESSION: 1. New onset ascites secondary to underlying liver cirrhosis and portal hypertension, status post large-volume paracentesis 7 L of fluid removed. Fluid analysis consistent with portal hypertension, presently on Lasix 40 mg daily, Aldactone 100 mg daily. Doing well. BUN and creatinine normal. 2. Heavy alcohol abuse of 30 years duration. 3. Positive hepatitis C antibody. HCV RNA is still pending. RECOMMENDATIONS: 1. Continue with current diuretic regimen. 2. Low-salt diet. 3. If patient is discharged home today, he can follow up in office in 2 weeks for further management of chronic liver disease. Thank you for this consultation. MMODL / IJN: [id number] /
--- NOTE | 2019-05-12 16:47 | P.PN ---
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 Clemons over the weekend. Mr. Salomon is a 58-year-old male with a past medical history of alcoholism coming into the emergency Department with the chief complaint of increasing abdominal girth and difficulty in breathing. Patient has history of alcohol dependence. In the emergency he was found to have mildly elevated liver function tests and admitted for further management. On 05/11/2019 - patient had paracentesis done yesterday with removal of 7040 mL fluid. Patient received albumin after the paracentesis. This morning he is sitting comfortably in the bed appears to be no acute distress. As per the nursing staff report that his decreased urinary output. Patient made only 30-40 mL of urine since this morning. Patient states that he is not having any com plaints of dysuria, mentions that he always has blood in his urine and it is pink in color. Patient denies having any lower abdominal pain or flank pain. No fevers chills or rigors. On review of systems he denies having any chest pain or palpitations. No nausea vomiting or abdominal pain. After the paracentesis he feels much better in terms of his difficulty in breathing. Patient denies having any swelling of his lower extremities. On 05/12/2019 - patient is sitting up in bed appears to be no acute distress. He does not have any active complaints. Patient has been started on Lasix and spironolactone. Patient's workup has been positive for hepatitis C. Patient denies having any chest pain or palpitations. No cough or difficulty in breathing. He complains of mild abdominal discomfort. No nausea or vomiting, diarrhea or constipation. Patient denies having any dizziness. Patient's blood pressure is running on the lower side with initiation of spironolactone and Lasix. Patient's labs and medications have been reviewed. Active Medications Albuterol/Ipratropium (Duoneb 0.5 Mg-3 Mg/3 Ml Soln) 3 ml INHALATION RT-QID PRN PRN Reason: Shortness Of Breath Or Wheezing Clonidine (Catapres) 0.1 mg PO BID PRN PRN Reason: Heart Rate - HIGH Furosemide (Lasix) 40 mg PO DAILY [facility] Last Admin: 05/12/19 09:40 Dose: 40 mg Documented by: Dextrose/Sodium Chloride (Dextrose 5%-1/2ns Iv Soln) 1,000 mls @ 80 mls/hr IV .[id number] [facility] Last Admin: 05/12/19 03:40 Dose: 80 mls/hr Documented by: Lorazepam (Ativan) 1 mg IV Q2HR PRN PRN Reason: CIWA 8 or 9 Last Admin: 05/11/19 22:31 Dose: 1 mg Documented by: Lorazepam (Ativan) 1 mg IV Q1HR PRN PRN Reason: CIWA 10 to 15 Ondansetron HCl (Zofran) 4 mg IVP Q6HR PRN PRN Reason: Nausea And Vomiting Last Admin: 05/11/19 09:21 Dose: 4 mg Documented by: Pantoprazole Sodium (Protonix) 40 mg PO AC-BID [facility] Last Admin: 05/12/19 09:40 Dose: 40 mg Documented by: Spironolactone (Aldactone) 100 mg PO DAILY [facility] Last Admin: 05/12/19 09:40 Dose: 100 mg Documented by: Thiamine HCl (Vitamin B-1) 100 mg PO BID-W/MEALS [facility] Last Admin: 05/12/19 09:40 Dose: 100 mg Documented by: Objective - Vital Signs Vital signs: Vital Signs Temp 98.1 F 05/12/19 13:00 Pulse 61 05/12/19 13:00 Resp 17 05/12/19 13:00 BP 99/66 05/12/19 13:00 Pulse Ox 97 05/12/19 13:00 Intake & Output 05/11/19 05/12/19 05/12/19 18:59 06:59 18:59 Intake Total 566 039 8391 Balance 717 160 9427 Weight 78.018 kg Intake: Intake, IV Titration 640 240 640 Amount Dextrose 5%-0.45% NaCl 1, 640 240 640 000 ml @ 80 mls/hr IV . [id number] [facility] Rx#:[id number] Oral 600 Other: Voiding Method Urinal Urinal Urinal # Voids 2 2 3 - Exam General: Pt is sitting comfortably in the bed appears to be in acute distress. Eyes: PERRL, EOMI, no pallor. No icterus. HENT: normocephalic, mucus membranes moist Lungs: Bilateral breath sounds are positive, no wheezes or crackles CV: Regular rate and rhythm, no murmur. Abdomen: soft, non - distended. No tenderness. Neuro: A&Ox3, no focal neurological deficits. - Labs CBC & Chem 7: 05/09/19 20:07 05/12/19 07:11 Labs: Abnormal Lab Results - Last 24 Hours (Table) 05/12/19 Range/Units 07:11 Sodium 133 L (137-145) mmol/L Creatinine 0.56 L (0.66-1.25) mg/dL Calcium 8.3 L (8.4-10.2) mg/dL AST 66 H (17-59) U/L Total Protein 6.2 L (6.3-8.2) g/dL Albumin 3.0 L (3.5-5.0) g/dL Microbiology - Last 24 Hours (Table) 05/10/19 14:47 Gram Stain - Preliminary Paracentesis Fluid Body Fluid Culture - Preliminary Assessment and Plan Assessment: ASSESSMENT Alcoholic cirrhosis of the liver with ascites Elevated LFTs Anemia of chronic disease Mild protein calorie malnutrition PLAN : Patient is status post 7 L of acetic fluid removal and fluid analysis is consistent with portal hypertension. Patient has been started on Lasix and Aldactone and his blood pressure is running a little bit on the lower side. Discussed in detail the findings of positive hepatitis C antibody with him.Will monitor the patient's blood pressure and probable discharge tomorrow as the patient does not have a ride home today.
[2019-05-12 21:12] VITALS: RESP 18
[2019-05-13 05:44] VITALS: BP 105/70; PULSE 77; TEMP 97.6
[2019-05-13 07:44] LABS: Albumin, Fluid Source Ascites
[2019-05-13] MEDS: DEXTROSE 5%-0.45% NACL 1,000 ML IV SCH (07:52)
[2019-05-13] MEDS: SPIRONOLACTONE 25 MG TAB PO SCH (07:59)
[2019-05-13] MEDS: FUROSEMIDE 40 MG TAB PO SCH (07:59)
[2019-05-13] MEDS: PANTOPRAZOLE 40 MG TABLET PO SCH (07:59)
[2019-05-13] MEDS: THIAMINE 100 MG TAB PO SCH (07:59)
[2019-05-13 16:07] LABS: HCV Qualitative Result Not detected (Not detected); HCV Quant Log <1.08 (<1.08); HCV Quantitative Result <12 IU/mL (<12)
--- NOTE | 2019-05-13 16:31 | P.DS ---
Providers Date of admission: 05/11/19 13:17 Expected date of discharge: 05/13/19 Attending physician: Bartolo Clemons MD Consults: 05/09/19 21:52 Consult Physician Routine Consulting Provider: Cricket Corona Consult Reason/Comments: ascites Do you want consulting provider notified?: Yes Primary care physician: Emilie Hoover [facility] Course: Final Diagnoses: Alcoholic cirrhosis of the liver with ascites, status post large volume paracentesis Portal hypertension Elevated LFTs Anemia of chronic disease Mild protein calorie malnutrition Hepatitis C, further follow-up outpatient with [facility] course:Mr. Salomon is a 58-year-old male with a past medical history of alcoholism coming into the emergency Department with the chief complaint of increasing abdominal girth and difficulty in breathing. Patient has history of alcohol dependence. In the emergency he was found to have mildly elevated liver function tests and admitted for further management. On 05/11/2019 - patient had paracentesis done yesterday with removal of 7040 mL fluid. Patient received albumin after the paracentesis. This morning he is sitting comfortably in the bed appears to be no acute distress. As per the nursing staff report that his decreased urinary output. Patient made only 30-40 mL of urine since this morning. Patient states that he is not having any complaints of dysuria, mentions that he always has blood in his urine and it is pink in color. Patient denies having any lower abdominal pain or flank pain. No fevers chills or rigors. On review of systems he denies having any chest pain or palpitations. No nausea vomiting or abdominal pain. After the paracentesis he feels much better in terms of his difficulty in breathing. Patient denies having any swelling of his lower extremities. On 05/12/2019 - patient is sitting up in bed appears to be no acute distress. He does not have any active complaints. Patient has been started on Lasix and spironolactone. Patient's workup has been positive for hepatitis C. Patient denies having any chest pain or palpitations. No cough or difficulty in breathing. He complains of mild abdominal discomfort. No nausea or vomiting, diarrhea or constipation. Patient denies having any dizziness. Patient's blood pressure is running on the lower side with initiation of spironolactone and Lasix. Patient is status post 7 L of acetic fluid removal and fluid analysis is consistent with portal hypertension. Patient has been started on Lasix and Aldactone and his blood pressure is running a little bit on the lower side. Discussed in detail the findings of positive hepatitis C antibody with him. Significant clinical improvement. Cleared by GI for discharge. Patient is being discharged home in a stable condition with guarded prognosis. Further follow-up outpatient with GI regarding hepatitis C advised. Exam General: Alert and oriented 3, no acute distress. Lungs: Bilateral breath sounds are positive, no wheezes or crackles CV: Regular rate and rhythm, no murmur. Abdomen: soft, non - distended. No tenderness. Neuro: A&Ox3, no focal neurological deficits. The impression and plan of care has been dictated as directed. : I performed a history and examination of this patient, discussed the same with the dictator. I agree with the dictator's note ,documented as a scribe. Any additional findings or plans will be noted. Patient Condition at Discharge: Stable Plan - Discharge Summary New Discharge Prescriptions: New Spironolactone [Aldactone] 100 mg PO DAILY #30 tab Furosemide [Lasix] 40 mg PO DAILY #30 tab Pantoprazole [Protonix] 40 mg PO AC-BID #[address] tablet.[address] Mccarty Ensure 1 can PO BID Discharge Medication List Ensure 1 can PO BID 05/09/19 [History] Furosemide [Lasix] 40 mg PO DAILY #30 tab 05/13/19 [Rx] Pantoprazole [Protonix] 40 mg PO AC-BID #60 tablet. 05/13/19 [Rx] Spironolactone [Aldactone] 100 mg PO DAILY #30 tab 05/13/19 [Rx] Follow up Appointment(s)/Referral(s): Chayito Levine MD [STAFF PHYSICIAN] - 06/06/19 8:00 am (Patient to call Dr. Hoover's office and of them do a referral for Dr. Levine's office. This needs to be done as soon as possible, or your appointment will be canceled. ) Emilie Hoover DO [Primary Care Provider] - 05/20/19 1:00 pm (This appointment will be at the [place] office.) Patient Instructions/Handouts: Spironolactone (By mouth), Furosemide (By mouth), Pantoprazole (By mouth), Cirrhosis (DC), Abuse of Alcohol (DC), Alcohol Withdrawal (DC), Ascites (DC) Discharge Disposition: HOME SELF-CARE
== END 2019-05-13 12:20 | disposition home or self-care (01) | DRG 433 ==
LOC: EC 19:16 → 3NMEDONC 21:49 → OBSVTOIN 05-11 13:17
PROVIDERS: ADMIT Family Medicine; ATTEND Family Medicine
PROC: 0W9G3ZZ Drainage of Peritoneal Cavity, Percutaneous Approach (ICD-10-PCS; principal; 2019-05-10)
PROC: HZ2ZZZZ Detoxification Services for Substance Abuse Treatment (ICD-10-PCS; 2019-05-10)
DX: K70.31 Alcoholic cirrhosis of liver with ascites (principal); F10.239 Alcohol dependence with withdrawal, unspecified; K76.6 Portal hypertension; E44.1 Mild protein-calorie malnutrition; F17.200 Nicotine dependence, unspecified, uncomplicated; B19.20 Unspecified viral hepatitis C without hepatic coma; D63.8 Anemia in other chronic diseases classified elsewhere; Z91.048 Other nonmedicinal substance allergy status; Z79.899 Other long term (current) drug therapy; Z68.23 Body mass index [BMI] 23.0-23.9, adult; Z98.890 Other specified postprocedural states
CPT/HCPCS: 36415; 49083; 71046; 80053; 80074; 81001; 81003; 82042; 82140; 82550; 82728; 82945; 83615; 83735; 83880; 84100; 84157; 84484; 85025; 85610; 85730; 87070; 87075; 87205; 87522; 89050; 93005; 96372; 96374; 96375; 99285

== ENCOUNTER 2019-06-19 14:17 | Inpatient (IN) | payer BC ==
[2019-06-19] MEDS ORDERED: SODIUM CHLORIDE 0.9% 1,000 ML IV STA (14:26)
[2019-06-19] MEDS ORDERED: PANTOPRAZOLE 40 MG/10 ML VIAL IVP STA (14:26)
[2019-06-19] MEDS ORDERED: SODIUM CHLORIDE 0.9% 500 ML 500 ML IV STA (14:26)
--- NOTE | 2019-06-19 14:32 | ED ---
General Adult HPI - General Stated complaint: Vomiting Time Seen by Provider: 06/19/19 14:18 Source: patient, EMS, RN notes reviewed Mode of arrival: EMS Limitations: no limitations - History of Present Illness Initial comments: Patient is a pleasant 58-year-old male presenting to the emergency department with complaints of coffee-ground emesis. Onset of symptoms was yesterday afternoon. Patient has vomited more than 7 times. Patient has also had similar amount of dark stools, black. Patient has had some mild abdominal discomfort. Patient has been fatigued and lightheaded. Patient does have known history of alcoholic cirrhosis and just stopped drinking May 11. - Related Data Home Medications Medication Instructions Recorded Confirmed Ensure 1 can PO BID 05/09/19 05/09/19 Previous Rx's Medication Instructions Recorded Furosemide [Lasix] 40 mg PO DAILY #30 tab 05/13/19 Pantoprazole [Protonix] 40 mg PO AC-BID #60 tablet. 05/13/19 Spironolactone [Aldactone] 100 mg PO DAILY #30 tab 05/13/19 Allergies Allergy/AdvReac Type Severity Reaction Status Date / Time ragweed pollen Allergy Itching Verified 05/09/19 22:03 Review of Systems ROS Statement: Those systems with pertinent positive or pertinent negative responses have been documented in the HPI. ROS Other: All systems not noted in ROS Statement are negative. Constitutional: Denies: fever Eyes: Denies: eye pain ENT: Denies: ear pain Respiratory: Denies: cough, dyspnea Cardiovascular: Denies: chest pain Endocrine: Reports: fatigue Gastrointestinal: Reports: as per HPI, hematemesis (Coffee-ground emesis), melena Genitourinary: Denies: dysuria Musculoskeletal: Denies: back pain Skin: Denies: rash Neurological: Denies: headache Past Medical History Past Medical History: No Reported History History of Any Multi-Drug Resistant Organisms: None Reported Past Surgical History: Orthopedic Surgery Additional Past Surgical History / Comment(s): ARTHRO OF LEFT KNEE Past Anesthesia/Blood Transfusion Reactions: Motion Sickness Past Psychological History: No Psychological Hx Reported Smoking Status: Current every day smoker Past Alcohol Use History: Daily, Heavy Additional Past Alcohol Use History / Comment(s): SMOKED SINCE 11 YRS, LESS THAN 2 PPD. PATIENT ADMITS TO BEING AN ALCOHOLIC (A FIFTH A DAY). Past Drug Use History: None Reported - Past Family History Mother Family Medical History: No Reported History General Exam Limitations: no limitations General appearance: alert, in no apparent distress Head exam: Present: normocephalic Eye exam: Present: normal appearance, PERRL ENT exam: Present: normal oropharynx Neck exam: Present: normal inspection Respiratory exam: Present: normal lung sounds bilaterally Cardiovascular Exam: Present: regular rate, normal rhythm GI/Abdominal exam: Present: soft, organomegaly (Hepatomegaly). Absent: tenderness Extremities exam: Present: normal inspection Neurological exam: Present: alert Psychiatric exam: Present: normal affect, normal mood Skin exam: Present: normal color Course Vital Signs 06/19/19 14:40 Temperature 98.8 F Pulse Rate 104 H Respiratory 20 Rate Blood Pressure 107/74 O2 Sat by Pulse 96 Oximetry Medical Decision Making - Medical Decision Making Patient reevaluated and updated. Case discussed with Dr. Zhou, who will admit covering for Dr. Hoover. GI will be placed on consult. - Lab Data Result diagrams: 06/19/19 14:35 06/19/19 14:35 Lab Results 06/19/19 06/19/19 06/19/19 Range/Units 14:35 14:35 14:35 WBC 15.9 H (3.8-10.6) k/uL RBC 2.78 L (4.30-5.90) m/uL Hgb 8.6 L D (13.0-17.5) gm/dL Hct 26.9 L (39.0-53.0) % MCV 97.0 (80.0-100.0) fL MCH 30.9 (25.0-35.0) pg MCHC 31.9 (31.0-37.0) g/dL RDW 14.3 (11.5-15.5) % Plt Count 469 H (150-450) k/uL Neutrophils % 74 % Lymphocytes % 13 % Monocytes % 9 % Eosinophils % 0 % Basophils % 0 % Neutrophils # 11.9 H (1.3-7.7) k/uL Lymphocytes # 2.0 (1.0-4.8) k/uL Monocytes # 1.4 H (0-1.0) k/uL Eosinophils # 0.0 (0-0.7) k/uL Basophils # 0.0 (0-0.2) k/uL PT 12.0 (9.0-12.0) sec INR 1.2 H (<1.2) APTT 22.2 (22.0-30.0) sec Sodium 139 (137-145) mmol/L Potassium 4.4 (3.5-5.1) mmol/L Chloride 105 (98-107) mmol/L Carbon Dioxide 23 (22-30) mmol/L Anion Gap 11 mmol/L BUN 45 H (9-20) mg/dL Creatinine 0.62 L (0.66-1.25) mg/dL Est GFR (CKD-EPI)AfAm >90 (>60 ml/min/1.73 sqM) Est GFR (CKD-EPI)NonAf >90 (>60 ml/min/1.73 sqM) Glucose 127 H (74-99) mg/dL Calcium 8.5 (8.4-10.2) mg/dL Total Bilirubin 0.9 (0.2-1.3) mg/dL AST 36 (17-59) U/L ALT 19 (4-49) U/L Alkaline Phosphatase 56 (38-126) U/L Troponin I (0.000-0.034) ng/mL Total Protein 6.0 L (6.3-8.2) g/dL Albumin 2.9 L (3.5-5.0) g/dL Blood Type Blood Type Recheck Bld Type Recheck Status Antibody Screen Spec Expiration Date 06/19/19 06/19/19 Range/Units 14:35 14:35 WBC (3.8-10.6) k/uL RBC (4.30-5.90) m/uL Hgb (13.0-17.5) gm/dL Hct (39.0-53.0) % MCV (80.0-100.0) fL MCH (25.0-35.0) pg MCHC (31.0-37.0) g/dL RDW (11.5-15.5) % Plt Count (150-450) k/uL Neutrophils % % Lymphocytes % % Monocytes % % Eosinophils % % Basophils % % Neutrophils # (1.3-7.7) k/uL Lymphocytes # (1.0-4.8) k/uL Monocytes # (0-1.0) k/uL Eosinophils # (0-0.7) k/uL Basophils # (0-0.2) k/uL PT (9.0-12.0) sec INR (<1.2) APTT (22.0-30.0) sec Sodium (137-145) mmol/L Potassium (3.5-5.1) mmol/L Chloride (98-107) mmol/L Carbon Dioxide (22-30) mmol/L Anion Gap mmol/L BUN (9-20) mg/dL Creatinine (0.66-1.25) mg/dL Est GFR (CKD-EPI)AfAm (>60 ml/min/1.73 sqM) Est GFR (CKD-EPI)NonAf (>60 ml/min/1.73 sqM) Glucose (74-99) mg/dL Calcium (8.4-10.2) mg/dL Total Bilirubin (0.2-1.3) mg/dL AST (17-59) U/L ALT (4-49) U/L Alkaline Phosphatase (38-126) U/L Troponin I <0.012 (0.000-0.034) ng/mL Total Protein (6.3-8.2) g/dL Albumin (3.5-5.0) g/dL Blood Type A Positive Blood Type Recheck No Previous Record Bld Type Recheck Status CABO Indicated Antibody Screen NEGATIVE Spec Expiration Date 06/22/2019 - 2334 Disposition Clinical Impression: Upper GI hemorrhage Disposition: ADMITTED IP TO THIS HOSP Is patient prescribed a controlled substance at d/c from ED?: No Referrals: Emilie Hoover DO [Primary Care Provider] - 1-2 days Decision Time: 15:51
[2019-06-19 14:53] LABS: Basophils % (A) 0 %; Eosinophils % (A) 0 %; HCT 26.9 % (39.0-53.0); Lymphocytes % (A) 13 %; MCH 30.9 pg (25.0-35.0); MCHC 31.9 g/dL (31.0-37.0); Mean Platelet Volume 8.2; Monocytes # (A) 1.4 k/uL (0-1.0); Monocytes % (A) 9 %; Neutrophils # (A) 11.9 k/uL (1.3-7.7); Neutrophils % (A) 74 %; Platelet Count 469 k/uL (150-450); RBC 2.78 m/uL (4.30-5.90); RDW 14.3 % (11.5-15.5); WBC 15.9 k/uL (3.8-10.6)
[2019-06-19 14:57] LABS: HGB 8.6 gm/dL (13.0-17.5)
[2019-06-19 15:00] LABS: ALT 19 U/L (4-49); AST 36 U/L (17-59); African American GFR (CKD) >90 (>60 ml/min/1.73 sqM); Albumin 2.9 g/dL (3.5-5.0); Alkaline Phosphatase 56 U/L (38-126); Anion Gap 11 mmol/L; Blood Urea Nitrogen 45 mg/dL (9-20); Calcium 8.5 mg/dL (8.4-10.2); Carbon Dioxide 23 mmol/L (22-30); Chloride 105 mmol/L (98-107); Glucose 127 mg/dL (74-99); Non-African American GFR(CKD) >90 (>60 ml/min/1.73 sqM); Potassium 4.4 mmol/L (3.5-5.1); Sodium 139 mmol/L (137-145); Total Bilirubin 0.9 mg/dL (0.2-1.3)
[2019-06-19 15:18] LABS: INR 1.2 (<1.2); Partial Thromboplastin Time 22.2 sec (22.0-30.0)
[2019-06-19] MEDS ORDERED: NALOXONE 0.4 MG/ML 1 ML VIAL IV PRN (15:52)
[2019-06-19] MEDS ORDERED: ONDANSETRON 4 MG/2 ML VIAL IVP PRN (15:52)
[2019-06-19] MEDS: PANTOPRAZOLE 40 MG/10 ML VIAL IV SCH ×2 (16:00→16:13)
[2019-06-19] MEDS ORDERED: MORPHINE SULFATE 4 MG/ML SYRINGE IVP STA (16:07)
[2019-06-19] MEDS: SODIUM CHLORIDE 0.9% 1,000 ML IV SCH (18:26)
[2019-06-19 20:55] LABS: Basophils # (A) 0.1 k/uL (0-0.2); Basophils % (A) 0 %; Eosinophils % (A) 0 %; Lymphocytes # (A) 4.5 k/uL (1.0-4.8); Lymphocytes % (A) 29 %; MCH 33.3 pg (25.0-35.0); MCHC 33.3 g/dL (31.0-37.0); MCV 99.9 fL (80.0-100.0); Macrocytosis Slight; Mean Platelet Volume 8.7; Monocytes # (A) 1.1 k/uL (0-1.0); Monocytes % (A) 7 %; Neutrophils # (A) 9.1 k/uL (1.3-7.7); Neutrophils % (A) 59 %; Platelet Count 407 k/uL (150-450); RBC 1.97 m/uL (4.30-5.90); RDW 14.5 % (11.5-15.5); WBC 15.4 k/uL (3.8-10.6)
[2019-06-19 20:58] LABS: HCT 19.7 % (39.0-53.0); HGB 6.6 gm/dL (13.0-17.5)
[2019-06-19] MEDS: HYDROcodone/APAP 5-325MG 1 EACH TAB PO PRN (22:16)
[2019-06-19] MEDS: ONDANSETRON 4 MG/2 ML VIAL IVP PRN (22:21)
[2019-06-20] MEDS: PANTOPRAZOLE 40 MG/10 ML VIAL IV SCH ×3 (01:06→20:29)
[2019-06-20] MEDS: ONDANSETRON 4 MG/2 ML VIAL IVP PRN (03:42)
[2019-06-20] MEDS: SODIUM CHLORIDE 0.9% 1,000 ML IV SCH ×3 (05:16→17:18)
[2019-06-20 06:24] LABS: Basophils % (A) 0 %; Eosinophils % (A) 0 %; HCT 24.2 % (39.0-53.0); Lymphocytes # (A) 2.1 k/uL (1.0-4.8); Lymphocytes % (A) 12 %; MCH 30.7 pg (25.0-35.0); MCHC 33.2 g/dL (31.0-37.0); MCV 92.7 fL (80.0-100.0); Mean Platelet Volume 8.1; Monocytes # (A) 1.2 k/uL (0-1.0); Monocytes % (A) 7 %; Neutrophils # (A) 13.6 k/uL (1.3-7.7); Neutrophils % (A) 78 %; Platelet Count 329 k/uL (150-450); RBC 2.61 m/uL (4.30-5.90); WBC 17.4 k/uL (3.8-10.6)
[2019-06-20 06:31] LABS: ALT 16 U/L (4-49); AST 32 U/L (17-59); African American GFR (CKD) >90 (>60 ml/min/1.73 sqM); Albumin 2.4 g/dL (3.5-5.0); Alkaline Phosphatase 43 U/L (38-126); Anion Gap 7 mmol/L; Blood Urea Nitrogen 50 mg/dL (9-20); Calcium 8.1 mg/dL (8.4-10.2); Carbon Dioxide 24 mmol/L (22-30); Chloride 110 mmol/L (98-107); Glucose 122 mg/dL (74-99); Non-African American GFR(CKD) >90 (>60 ml/min/1.73 sqM); Potassium 4.7 mmol/L (3.5-5.1); Sodium 141 mmol/L (137-145); Total Bilirubin 2.1 mg/dL (0.2-1.3); Total Protein 5.1 g/dL (6.3-8.2)
[2019-06-20] MEDS: HYDROcodone/APAP 5-325MG 1 EACH TAB PO PRN (07:19)
[2019-06-20 10:38] LABS: Anisocytosis Slight; Basophils % (A) 0 %; Eosinophils % (A) 0 %; Lymphocytes # (A) 2.3 k/uL (1.0-4.8); Lymphocytes % (A) 14 %; MCH 31.9 pg (25.0-35.0); MCHC 34.7 g/dL (31.0-37.0); MCV 91.7 fL (80.0-100.0); Mean Platelet Volume 8.3; Monocytes # (A) 0.5 k/uL (0-1.0); Monocytes % (A) 3 %; Neutrophils # (A) 13.8 k/uL (1.3-7.7); Neutrophils % (A) 80 %; Platelet Count 341 k/uL (150-450); RBC 2.05 m/uL (4.30-5.90); RDW 16.5 % (11.5-15.5); WBC 17.3 k/uL (3.8-10.6)
[2019-06-20 10:43] LABS: HGB 6.5 gm/dL (13.0-17.5)
[2019-06-20 10:44] LABS: HCT 18.8 % (39.0-53.0)
[2019-06-20] MEDS ORDERED: PROPOFOL 10 MG/ML 20 ML VIAL IV ONE (10:49)
[2019-06-20] MEDS ORDERED: PHENYLEPHRINE-0.9% NACL SYG 1 MG/10 ML SYRINGE ONE (10:49)
[2019-06-20] MEDS ORDERED: ePHEDrine SULFATE/0.9% NACL/PF 50 MG/5 ML SYRINGE IV ONE (10:49)
[2019-06-20] MEDS ORDERED: LIDOCAINE 1% INJ 10MG/ML (20 ML MDV) ONE (10:49)
[2019-06-20] MEDS ORDERED: SUCCINYLCHOLINE CHLORIDE 100 MG/5 ML SYR IV ONE (10:49)
[2019-06-20] MEDS ORDERED: IV FLUID CONTINUATION 700 ML IV ONE (10:53)
[2019-06-20] MEDS ORDERED: LACTATED RINGERS 1,000 ML IV ONE (11:30)
--- NOTE | 2019-06-20 13:03 | P.CONS ---
History of Present Illness - Reason for Consult Consult date: 06/20/19 GI bleed Requesting physician: Bartolo Clemons - Chief Complaint Coffee-ground emesis - History of Present Illness 58-year-old male with a previous history of heavy alcohol use for which she discontinued on 05/16/2019 previously seen for decompensated cirrhosis with abdominal distention and ascites who presented to the hospital with concerns or GI bleeding. The patient reports multiple episodes of coffee-ground emesis as well as melena starting yesterday. Previously he had been drinking a fifth per day for 30 years. On last hospitalization and was discharged with diuretic therapy. He denies any prior episodes of GI bleeding. Remote history of colonoscopy approximately 5 years ago significant for diverticulosis with no EGD in the past. He denies any abdominal pain. The patient's hemoglobin was 8.6 on presentation and subsequently fell to 6.6 for which he was transfused. Plan was for EGD today for further evaluation. She has continued to have episodes of coffee-ground emesis and melena on the floor. Blood pressure has remained relatively stable with systolic blood pressure in the 90s. Review of Systems REVIEW OF SYSTEMS: CONSTITUTIONAL: Denies any fevers, chills, weight change or fatigue. CARDIOVASCULAR: Denies any chest pain, palpitations high or low blood pressures RESPIRATORY: Denies any shortness of breath, hemoptysis or cough. GENITOURINARY: No dysuria or hematuria. MUSCULOSKELETAL: No weakness reported. SKIN: Denies any new rashes or lesions, jaundice or pallor. PSYCHIATRIC: Denies any depression or anxiety. NEUROLOGY: Denies headache, denies any new focal deficits. EARS/NOSE/THROAT: No recent hearing change, congestion, nasal discharge or sore throat. EYES: No pain in eyes, discharge or change in vision. GASTROINTESTINAL: As per HPI. Past Medical History Past Medical History: No Reported History, Pneumonia Additional Past Medical History / Comment(s): liver failure History of Any Multi-Drug Resistant Organisms: None Reported Past Surgical History: Orthopedic Surgery Additional Past Surgical History / Comment(s): ARTHRO OF LEFT KNEE Past Anesthesia/Blood Transfusion Reactions: Motion Sickness Past Psychological History: No Psychological Hx Reported Smoking Status: Current every day smoker Past Alcohol Use History: Daily, Heavy Additional Past Alcohol Use History / Comment(s): SMOKED SINCE 11 YRS, LESS THAN 2 PPD. PATIENT ADMITS TO BEING AN ALCOHOLIC (A FIFTH A DAY). Past Drug Use History: None Reported - Past Family History Mother Family Medical History: No Reported History Medications and Allergies Home Medications Medication Instructions Recorded Confirmed Type Ensure 1 can PO BID 05/09/19 06/19/19 History Furosemide [Lasix] 40 mg PO DAILY #30 tab 05/13/19 06/19/19 Rx Spironolactone [Aldactone] 100 mg PO DAILY 06/19/19 06/19/19 History Allergies Allergy/AdvReac Type Severity Reaction Status Date / Time ragweed pollen Allergy Itching Verified 06/19/19 16:58 Physical Exam Vitals: Vital Signs Temp Pulse Pulse Resp BP BP BP 06/20/19 07:00 83 86/61 06/20/19 06:09 83 20 98/66 06/20/19 05:31 89 20 92/63 06/20/19 04:40 87/62 06/20/19 03:41 97.7 F 89 18 99/63 06/20/19 03:35 98.0 F 91 20 91/62 06/20/19 01:09 98.0 F 69 18 80/54 06/20/19 00:39 97.0 F L 80 18 92/55 06/20/19 00:29 98.0 F 90 18 87/59 06/20/19 00:11 98.9 F 65 20 95/54 06/19/19 22:40 98.9 F 65 20 95/54 06/19/19 22:37 98.6 F 97 20 81/59 06/19/19 22:10 98.1 F 93 20 85/54 06/19/19 22:00 97.6 F 97 18 83/52 06/19/19 20:50 97.1 F L 93 18 91/57 06/19/19 20:19 99 20 75/50 06/19/19 17:49 97.5 F L 67 16 88/59 06/19/19 14:40 98.8 F 104 H 20 107/74 Pulse Ox 06/20/19 07:00 06/20/19 06:09 100 06/20/19 05:31 100 06/20/19 04:40 06/20/19 03:41 100 06/20/19 03:35 06/20/19 01:09 100 06/20/19 00:39 100 06/20/19 00:29 100 06/20/19 00:11 06/19/19 22:40 100 06/19/19 22:37 100 06/19/19 22:10 100 06/19/19 22:00 98 06/19/19 20:50 100 06/19/19 20:19 98 06/19/19 17:49 96 06/19/19 14:40 96 Intake and Output 06/19/19 06/20/19 06/20/19 22:59 06:59 14:59 Intake Total 0 310 Output Total 175 Balance 0 135 Intake: Oral 0 0 Blood Product 0 310 Rc As-1 Unit 0 310 [id number] Rc As-1 Unit 0 [id number] Output: Urine 175 Other: # Voids 300 # Bowel Movements 2 2 Weight 71.214 kg On physical examination, patient appears comfortable in no apparent distress. HEAD: Normocephalic, atraumatic. EYES: No scleral icterus. No conjunctival injection. MOUTH: No lesions, tongue midline. NECK: Trachea midline, no gross abnormalities. CHEST: Clear to auscultation with no wheezing or rhonchi appreciated. HEART: Regular rate and rhythm. ABDOMEN: Soft, distended. Bowel sounds are positive. No organomegaly. No guarding or rigidity. EXTREMITIES: No pedal edema. SKIN: No rashes, no jaundice. NEUROLOGIC: Alert and oriented x3. No focal deficits. Results CBC & Chem 7: 06/20/19 10:10 06/20/19 05:41 Labs: Abnormal Lab Results - Last 24 Hours (Table) 06/19/19 06/19/19 06/19/19 Range/Units 14:35 14:35 14:35 WBC 15.9 H (3.8-10.6) k/uL RBC 2.78 L (4.30-5.90) m/uL Hgb 8.6 L D (13.0-17.5) gm/dL Hct 26.9 L (39.0-53.0) % RDW (11.5-15.5) % Plt Count 469 H (150-450) k/uL Neutrophils # 11.9 H (1.3-7.7) k/uL Monocytes # 1.4 H (0-1.0) k/uL INR 1.2 H (<1.2) Chloride (98-107) mmol/L BUN 45 H (9-20) mg/dL Creatinine 0.62 L (0.66-1.25) mg/dL Glucose 127 H (74-99) mg/dL Calcium (8.4-10.2) mg/dL Total Bilirubin (0.2-1.3) mg/dL Total Protein 6.0 L (6.3-8.2) g/dL Albumin 2.9 L (3.5-5.0) g/dL Crossmatch 06/19/19 06/19/19 06/20/19 Range/Units 14:35 20:39 05:41 WBC 15.4 H (3.8-10.6) k/uL RBC 1.97 L (4.30-5.90) m/uL Hgb 6.6 L* D (13.0-17.5) gm/dL Hct 19.7 L* (39.0-53.0) % RDW (11.5-15.5) % Plt Count (150-450) k/uL Neutrophils # 9.1 H (1.3-7.7) k/uL Monocytes # 1.1 H (0-1.0) k/uL INR (<1.2) Chloride 110 H (98-107) mmol/L BUN 50 H (9-20) mg/dL Creatinine (0.66-1.25) mg/dL Glucose 122 H (74-99) mg/dL Calcium 8.1 L (8.4-10.2) mg/dL Total Bilirubin 2.1 H (0.2-1.3) mg/dL Total Protein 5.1 L (6.3-8.2) g/dL Albumin 2.4 L (3.5-5.0) g/dL Crossmatch See Detail 06/20/19 Range/Units 05:41 WBC 17.4 H (3.8-10.6) k/uL RBC 2.61 L (4.30-5.90) m/uL Hgb 8.0 L (13.0-17.5) gm/dL Hct 24.2 L (39.0-53.0) % RDW 16.0 H (11.5-15.5) % Plt Count (150-450) k/uL Neutrophils # 13.6 H (1.3-7.7) k/uL Monocytes # 1.2 H (0-1.0) k/uL INR (<1.2) Chloride (98-107) mmol/L BUN (9-20) mg/dL Creatinine (0.66-1.25) mg/dL Glucose (74-99) mg/dL Calcium (8.4-10.2) mg/dL Total Bilirubin (0.2-1.3) mg/dL Total Protein (6.3-8.2) g/dL Albumin (3.5-5.0) g/dL Crossmatch Assessment and Plan (1) Upper GI hemorrhage Narrative/Plan: 58-year-old female with a medical history significant for decompensated alcohol cirrhosis with ascites who denies any prior episodes of GI bleed who presents with complaints of coffee-ground emesis and melena which persisted even after ad mission. Differential includes gastric or esophageal variceal bleed, peptic ulcer disease, or other etiology. Current Visit: Yes Status: Acute Code(s): K92.2 - GASTROINTESTINAL HEMORRHAGE, UNSPECIFIED SNOMED Code(s): 36088705 (2) Alcoholic cirrhosis of liver with ascites Current Visit: No Status: Acute Code(s): K70.31 - ALCOHOLIC CIRRHOSIS OF LIVER WITH ASCITES SNOMED Code(s): 277961246 Plan: Supportive care Nothing by mouth Continue IV PPI Continue monitor hemoglobin and hematocrit and transfuse as needed Further recommendations ending findings of EGD Plan on an emergent EGD today for further evaluation ICU transfer post procedure Thank you for allowing us to participate in the care of the patient we will continue follow-up
--- NOTE | 2019-06-20 13:12 | P.PCN ---
Date of Procedure: 06/20/19 Description of Procedure: BRIEF HISTORY: 58-year-old male with a previous history of heavy alcohol use for which she discontinued on 05/16/2019 previously seen for decompensated cirrhosis with abdominal distention and ascites who presented to the hospital with concerns or GI bleeding. The patient reports multiple episodes of coffee-ground emesis as well as melena starting yesterday. Previously he had been drinking a fifth per day for 30 years. On last hospitalization and was discharged with diuretic therapy. He denies any prior episodes of GI bleeding. Remote history of colonoscopy approximately 5 years ago significant for diverticulosis with no EGD in the past. He denies any abdominal pain. The patient's hemoglobin was 8.6 on presentation and subsequently fell to 6.6 for which he was transfused. Plan was for EGD today for further evaluation. She has continued to have episodes of coffee-ground emesis and melena on the floor. Blood pressure has remained relatively stable with systolic blood pressure in the 90s. PROCEDURE PERFORMED: Esophagogastroduodenoscopy. PREOPERATIVE DIAGNOSIS: Upper GI bleed, anemia of acute blood loss . ESTIMATED BLOOD LOSS: Minimal. IV sedation per anesthesia. PROCEDURE: After informed consent was obtained, the patient was brought into the endoscopy unit. IV sedation was administered by Anesthesia under continuous monitoring. Initially the Olympus GIF-190 video endoscope was inserted into the mouth. Esophagus intubated without any difficulty. It was gradually advanced into the stomach and duodenum and carefully examined. The bulb and the second part of the duodenum appeared normal, with old blood but no active bleeding noted. The scope at this time was withdrawn to the stomach, adequately insufflated with air, and upon careful examination, mucosa of the antrum, body, cardia and the fundus appeared normal. Large amount of old clots were noted in the cardia and fundus of the stomach. Copious lavage and suctioning was performed however the clots continued to clog the scope and equipment, and were unable to be completely suctioned. No active bleeding was noted. The esophagus was significant for old blood with a somewhat tortuous distal esophagus with small varices noted. No active bleeding was noted from these varices or high risk stigmata of recent bleeding. The procedure was eventually he completed as the clots could not completely be removed. At this time patient will be admitted to the ICU for further management. Of note during the procedure patient required intubation to protect the airway (please see anesthesia record for full details). IMPRESSION: 1. Old blood noted in the esophagus, stomach and small bowel with no active bleeding noted. Copious suctioning was unable to remove all the clots. 2. Somewhat tortuous distal esophagus with small nonbleeding varices noted, without high-risk stigmata for recent bleed. RECOMMENDATIONS: The findings of this examination were discussed with the patient. Patient should remain nothing by mouth. Continue IV PPI therapy octreotide drip will be added. Ceftriaxone daily for SBP prophylaxis. Continue monitor hemoglobin and hematocrit. One unit of additional PRBCs has been ordered. Reglan will be ordered 3. Plan for repeat EGD tomorrow.
[2019-06-20 13:26] LABS: Glucose,Whole Blood 156 mg/dL (75-99)
[2019-06-20] MEDS ORDERED: SODIUM CHLORIDE 0.9% 1,000 ML IV ONE ×3 (13:37→19:38)
--- NOTE | 2019-06-20 13:52 | XR ---
EXAMINATION TYPE: XR chest 1V portable DATE OF EXAM: 06/20/2019 COMPARISON: NONE HISTORY: Tube placement TECHNIQUE: Single frontal view of the chest is obtained. FINDINGS: Left lower lobe infiltrate and small effusion noted. ET tube approximately 4.7 cm above th e clare. No overt failure. Heart size normal. Chronic deformity of the right clavicle noted. No pneu mothorax. Suspect a small hiatal hernia. IMPRESSION: 1. ET tube 4.7 cm above the clare. 2. Left lower lobe infiltrate with small effusion.
[2019-06-20 13:54] LABS: ABG Base Excess -3.1 mmol/L; ABG HCO3 21 mmol/L (21-25); ABG Oxygen Saturation 99.2 % (94-97); ABG PCO2 33 mmHg (35-45); ABG PH 7.42 (7.35-7.45); ABG PO2 148 mmHg (83-108); ABG TCO2 22 mmol/L (19-24); Allen Test Performed? Yes
[2019-06-20] MEDS: OCTREOTIDE 500 MCG in SODIUM CHLORIDE 0.9% 250 ML IV SCH (14:17)
--- NOTE | 2019-06-20 14:41 | XR ---
EXAMINATION TYPE: XR chest 1V portable DATE OF EXAM: 06/20/2019 at 1418 hours Comparison: Earlier today at 1334 hours Clinical History: 58-year-old male NG tube placement Findings: ET tube appears satisfactory. NG tube courses below the diaphragm with sidehole within the gastric ortega men. The thoracic inlet is excluded. Old fracture deformity right clavicle. Difficult to determine if there is some leftward patient rotation or new extensive volume loss at the left base. There is exte nsive opacity left mid and lower lung and the heart is located on the left. Impression: 1. Satisfactory NG tube. 2. New/increased extensive opacity left mid and lower lung. There seems to be some shift of the heart toward the left suggesting significant atelectasis/collapse. Concurrent infiltrate and effusion not excluded.
[2019-06-20] MEDS: CHLORHEXIDINE GLUCONATE 15 ML CUP MUCOUS MEM SCH ×2 (15:15→20:29)
[2019-06-20] MEDS: METOCLOPRAMIDE 5 MG/ML 2 ML VIAL IVP SCH ×2 (15:15→19:04)
--- NOTE | 2019-06-20 15:19 | US ---
EXAMINATION TYPE: US abdomen limited DATE OF EXAM: 06/20/2019 COMPARISON: NONE CLINICAL HISTORY: Ascites. Ascites check TECHNIQUE/FINDINGS: Targeted grayscale ultrasound was performed of the 4 quadrants of the abdomen to evaluate ascites only. Abdominal ascites seen in all 4 quadrants. Only a small amount is seen in the upper abdomen with moderate amount in the right and left lower quadrants. IMPRESSION: Moderate amount of abdominal ascites in the right and left lower quadrants. Only small a mount within the upper abdomen.
[2019-06-20 17:45] LABS: Anisocytosis Slight; Basophils % (A) 0 %; Eosinophils % (A) 0 %; HCT 25.3 % (39.0-53.0); Lymphocytes # (A) 1.2 k/uL (1.0-4.8); Lymphocytes % (A) 5 %; MCV 88.6 fL (80.0-100.0); Mean Platelet Volume 8.5; Monocytes % (A) 4 %; Neutrophils # (A) 19.7 k/uL (1.3-7.7); Neutrophils % (A) 88 %; Platelet Count 304 k/uL (150-450); RBC 2.86 m/uL (4.30-5.90); RDW 16.1 % (11.5-15.5); WBC 22.4 k/uL (3.8-10.6)
[2019-06-20 17:58] LABS: HGB 8.9 gm/dL (13.0-17.5)
--- NOTE | 2019-06-20 18:16 | P.CNPUL ---
History of Present Illness Consult date: 06/20/19 Reason for consult: other Chief complaint: Upper GI bleed, blood loss anemia History of present illness: 58-year-old white male with past history of alcoholic cirrhosis, current smoker, who presented to the hospital on 06/19/2019 with complaints of coffee- ground emesis. Onset of symptoms 1 day prior to presentation. Patient's EtOH use has been in remission since early May 2019. Patient was having coffee-ground emesis and black tarry stools. Is complaining of mild abdominal distention, fatigue and lightheadedness. Patient denied any prior episodes of GI bleeding, he had been a heavy alcohol user drinking a fifth per day for 30 years. Admission blood work showed a white blood cell count of 17.4, hemoglobin of 8.0, of note patient's previous hemoglobin in May 2019 was 12.6. While inpatient patient continued to vomit, and he was evaluated by gastroenterology, and today on 62,020 he was taken to the OR for EGD, which showed old blood in the esophagus, stomach and small bowel with no active bleeding. The stomach was copiously suctioned however old clots were not removed, his distal esophagus was tortuous with small nonbleeding varices without high risk stigmata for recent bleeding. Patient was started on PPI therapy, on octreotide infusion, he has received a total of 4 units of packed red blood cells, 2 half liters in the fluid boluses, patient was left intubated on mechanical ventilation and transferred to the intensive care unit for close hemodynamic monitoring with intention for repeat EGD tomorrow on 06/21/2019. Patient is currently intubated, sedated however he is agitated and a ventilator, and a van infusion is being started, is currently hypotensive with a systolic in the 70s, he is receiving a fluid bolus in his 40s and the blood is infusing, his current vent settings are assist-control with a rate of 12, tidal 04/09/1952, FiO2 100%, and PEEP of 5. His most recent hemoglobin is 8.9 after the blood transfusion, his white count is 22.4, and patient is on Rocephin for SBP. Postop blood gases showed pO2 of 148, pCO2 33, pH of 7.42 this was done on 100% FiO2 and the above- mentioned vent settings. Review of Systems All systems: negative Constitutional: Denies chills, Denies fever Eyes: denies blurred vision, denies pain Ears, nose, mouth and throat: Denies headache, Denies sore throat Cardiovascular: Denies chest pain, Denies shortness of breath Respiratory: Denies cough Gastrointestinal: Reports coffee ground emesis, Denies abdominal pain, Denies diarrhea, Denies nausea, Denies vomiting Musculoskeletal: Denies myalgias Integumentary: Denies pruritus, Denies rash Neurological: Denies numbness, Denies weakness Psychiatric: Denies anxiety, Denies depression Endocrine: Denies fatigue, Denies weight change Past Medical History Past Medical History: No Reported History, Pneumonia Additional Past Medical History / Comment(s): liver failure History of Any Multi-Drug Resistant Organisms: None Reported Past Surgical History: Orthopedic Surgery Additional Past Surgical History / Comment(s): ARTHRO OF LEFT KNEE Past Anesthesia/Blood Transfusion Reactions: Motion Sickness Past Psychological History: No Psychological Hx Reported Smoking Status: Current every day smoker Past Alcohol Use History: Daily, Heavy Additional Past Alcohol Use History / Comment(s): SMOKED SINCE 13 YRS, LESS THAN 2 PPD. PATIENT ADMITS TO BEING AN ALCOHOLIC (A FIFTH A DAY). Past Drug Use History: None Reported - Past Family History Mother Family Medical History: No Reported History Medications and Allergies Home Medications Medication Instructions Recorded Confirmed Type Ensure 1 can PO BID 05/09/19 06/19/19 History Furosemide [Lasix] 40 mg PO DAILY #30 tab 05/13/19 06/19/19 Rx Spironolactone [Aldactone] 100 mg PO DAILY 06/19/19 06/19/19 History Allergies Allergy/AdvReac Type Severity Reaction Status Date / Time ragweed pollen Allergy Itching Verified 06/19/19 16:58 Physical Exam Vitals: Vital Signs Temp Pulse Pulse Resp BP BP BP 06/20/19 17:15 86 24 95/50 06/20/19 17:00 97.9 F 81 30 H 06/20/19 16:45 81 27 H 80/57 06/20/19 16:30 80 26 H 121/54 06/20/19 16:20 97.1 F L 81 18 112/50 06/20/19 16:15 23 95/55 06/20/19 16:00 76 27 H 97/60 06/20/19 15:45 75 28 H 105/82 06/20/19 15:30 27 H 93/57 06/20/19 15:15 68 26 H 103/54 06/20/19 15:00 66 18 06/20/19 14:45 66 22 06/20/19 14:30 64 18 94/65 06/20/19 14:15 76 13 74/47 06/20/19 14:00 73 18 74/53 06/20/19 13:57 96.7 F L 79 18 98/45 06/20/19 13:45 75 18 83/39 06/20/19 13:30 95 F L 71 27 H 76/37 06/20/19 13:27 94.5 F L 78 19 83/39 06/20/19 13:17 34.3 F L 69 22 76/37 06/20/19 13:15 72 10 L 74/52 06/20/19 13:14 34.6 F L 77 14 74/52 06/20/19 13:00 73 28 H 76/52 06/20/19 12:54 82 19 06/20/19 10:29 976 F H 100 20 96/61 06/20/19 10:19 97.7 F 92 16 91/62 06/20/19 10:00 92 20 06/20/19 09:00 97.5 F L 92 20 76/50 06/20/19 07:00 83 86/61 06/20/19 06:09 83 20 98/66 06/20/19 05:31 89 20 92/63 06/20/19 04:40 87/62 06/20/19 03:41 97.7 F 89 18 99/63 06/20/19 03:35 98.0 F 91 20 91/62 06/20/19 01:09 98.0 F 69 18 80/54 06/20/19 00:39 97.0 F L 80 18 92/55 06/20/19 00:29 98.0 F 90 18 87/59 06/20/19 00:11 98.9 F 65 20 95/54 06/19/19 22:40 98.9 F 65 20 95/54 06/19/19 22:37 98.6 F 97 20 81/59 06/19/19 22:10 98.1 F 93 20 85/54 06/19/19 22:00 97.6 F 97 18 83/52 06/19/19 20:50 97.1 F L 93 18 91/57 06/19/19 20:19 99 20 75/50 Pulse Ox 06/20/19 17:15 100 06/20/19 17:00 100 06/20/19 16:45 98 06/20/19 16:30 100 06/20/19 16:20 06/20/19 16:15 100 06/20/19 16:00 100 06/20/19 15:45 100 06/20/19 15:30 100 06/20/19 15:15 100 06/20/19 15:00 100 06/20/19 14:45 100 06/20/19 14:30 100 06/20/19 14:15 82 L 06/20/19 14:00 96 06/20/19 13:57 06/20/19 13:45 100 06/20/19 13:30 100 06/20/19 13:27 06/20/19 13:17 100 06/20/19 13:15 100 06/20/19 13:14 06/20/19 13:00 93 L 06/20/19 12:54 06/20/19 10:29 100 06/20/19 10:19 96 06/20/19 10:00 06/20/19 09:00 97 06/20/19 07:00 06/20/19 06:09 100 06/20/19 05:31 100 06/20/19 04:40 06/20/19 03:41 100 06/20/19 03:35 06/20/19 01:09 100 06/20/19 00:39 100 06/20/19 00:29 100 06/20/19 00:11 06/19/19 22:40 100 06/19/19 22:37 100 06/19/19 22:10 100 06/19/19 22:00 98 06/19/19 20:50 100 06/19/19 20:19 98 Intake and Output 06/20/19 06/20/19 06/20/19 06:59 14:59 22:59 Intake Total 310 4585 810 Output Total 175 105 80 Balance 135 4480 730 Intake: IV 3655 500 Invasive Line 1 40 Invasive Line 2 40 Octreotide 500 mcg In 50 75 Sodium Chloride 0.9% 250 ml @ 50 MCG/HR 25 mls/hr IV .Q10H [facility] Rx#: [id number] Sodium Chloride 0.9% 1, 2225 375 000 ml @ 125 mls/hr IV . Q8H [facility] Rx#:[id number] cefTRIAXone 1 gm In 50 Sodium Chloride 0.9% 50 ml @ 100 mls/hr IVPB Q24HR [facility] Rx#:[id number] Oral 0 Blood Product 310 930 310 Rc As-1 Unit 310 [id number] Rc As-1 Unit 0 [id number] Rc As-3 Unit 310 [id number] Rc As-3 Unit 0 310 [id number] Output: Urine 175 105 80 Other: # Bowel Movements 2 ABP, PAP, CO, CI - Last 8 Hours Arterial Blood Pressure 105/55 Arterial Blood Pressure 102/52 Arterial Blood Pressure 93/54 Arterial Blood Pressure 112/56 Arterial Blood Pressure 106/60 Arterial Blood Pressure 112/59 Arterial Blood Pressure 114/61 Arterial Blood Pressure 111/64 Arterial Blood Pressure 111/71 Arterial Blood Pressure 115/71 GENERAL EXAM: Agitated, sedated, 58-year-old white male, intubated on mechanical ventilator HEAD: Normocephalic/atraumatic. EYES: Normal reaction of pupils, equal size. Conjunctiva pink, sclera white. NOSE: Clear with pink turbinates. NG tube has been inserted and connected to low intermittent suction, and is draining dark sanguinous output THROAT: No erythema or exudates. NECK: No masses, no JVD, no thyroid enlargement, no adenopathy. CHEST: No chest wall deformity. Symmetrical expansion. LUNGS: Equal air entry with no crackles, wheeze, rhonchi or dullness. CVS: Regular rate and rhythm, normal S1 and S2, no gallops, no murmurs, no rubs ABDOMEN: Soft, nontender, distended. No hepatosplenomegaly, normal bowel sounds, no guarding or rigidity. EXTREMITIES: No clubbing, no edema, no cyanosis, 2+ pulses and upper and lower extremities. MUSCULOSKELETAL: Muscle strength and tone normal. SPINE: No scoliosis or deformity SKIN: No rashes CENTRAL NERVOUS SYSTEM: Intubated, sedated, No focal deficits, tone is normal in all 4 extremities. Results - Laboratory Findings CBC and BMP: 06/20/19 17:30 06/20/19 05:41 ABG ABG pH 7.42 (7.35-7.45) 06/20/19 13:52 ABG pCO2 33 mmHg (35-45) L 06/20/19 13:52 ABG pO2 148 mmHg (83-108) H 06/20/19 13:52 ABG O2 Saturation 99.2 % (94-97) H 06/20/19 13:52 PT/INR, D-dimer PT 12.0 sec (9.0-12.0) 06/19/19 14:35 INR 1.2 (<1.2) H 06/19/19 14:35 Abnormal lab findings: Abnormal Labs 06/19/19 06/19/19 06/19/19 14:35 14:35 14:35 WBC 15.9 H RBC 2.78 L Hgb 8.6 L D Hct 26.9 L RDW Plt Count 469 H Neutrophils # 11.9 H Monocytes # 1.4 H INR 1.2 H ABG pCO2 ABG pO2 ABG O2 Saturation Chloride BUN 45 H Creatinine 0.62 L Glucose 127 H POC Glucose (mg/dL) Calcium Total Bilirubin Total Protein 6.0 L Albumin 2.9 L Crossmatch 06/19/19 06/19/19 06/20/19 14:35 20:39 05:41 WBC 15.4 H RBC 1.97 L Hgb 6.6 L* D Hct 19.7 L* RDW Plt Count Neutrophils # 9.1 H Monocytes # 1.1 H INR ABG pCO2 ABG pO2 ABG O2 Saturation Chloride 110 H BUN 50 H Creatinine Glucose 122 H POC Glucose (mg/dL) Calcium 8.1 L Total Bilirubin 2.1 H Total Protein 5.1 L Albumin 2.4 L Crossmatch See Detail 06/20/19 06/20/19 06/20/19 05:41 10:10 13:25 WBC 17.4 H 17.3 H RBC 2.61 L 2.05 L Hgb 8.0 L 6.5 L* D Hct 24.2 L 18.8 L* RDW 16.0 H 16.5 H Plt Count Neutrophils # 13.6 H 13.8 H Monocytes # 1.2 H INR ABG pCO2 ABG pO2 ABG O2 Saturation Chloride BUN Creatinine Glucose POC Glucose (mg/dL) 156 H Calcium Total Bilirubin Total Protein Albumin Crossmatch 06/20/19 06/20/19 13:52 17:30 WBC 22.4 H RBC 2.86 L Hgb 8.9 L D Hct 25.3 L RDW 16.1 H Plt Count Neutrophils # 19.7 H Monocytes # INR ABG pCO2 33 L ABG pO2 148 H ABG O2 Saturation 99.2 H Chloride BUN Creatinine Glucose POC Glucose (mg/dL) Calcium Total Bilirubin Total Protein Albumin Crossmatch - Diagnostic Findings Chest x-ray: report reviewed, image reviewed Assessment and Plan Plan: Assessment: #1. Acute GI blood loss anemia related to upper GI bleeding status post EGD with suctioning of large amount of blood and clots, but no evidence of active bleeding, tortuous distal esophagus was small nonbleeding varices without high risk stigmata for recent bleeding. #2. Routine ventilator management, and patient was intubated for airway protection, and hemodynamic instability, and will be kept on a ventilator for repeat EGD on 06/21/2019 #3. Suspect aspiration pneumonia in left lower lobe #4. History of heavy alcohol use #5. Decompensated liver cirrhosis related to the above #6. Abdominal ascites #7. Current smoker Plan: Continue with current vent settings drop FiO2 to 50% and continue weaning to keep O2 sat above 92%, patient was fluid resuscitated, blood pressure has improved, chest x-ray has been reviewed showing possibility of left lower lobe infiltrate possibly related to aspiration pneumonia, same bloody material is being suctioned from the ET tube should for aspiration is high. Continue GI and DVT prophylaxis, as hemodynamic monitoring, patient's family was updated, continue octreotide infusion and PPI therapy the plan is for repeat EGD tomorrow morning I performed a history & physical examination of the patient and discussed their management with my nurse practitioner, Justa Dan. I reviewed the nurse practitioner's note and agree with the documented findings and plan of care. Lung sounds are positive for diminished breath sounds. The findings and the impression was discussed with the patient. I attest to the documentation by the nurse practitioner. Time with Patient: Greater than 30
[2019-06-20 18:32] LABS: Glucose,Whole Blood 134 mg/dL (75-99)
[2019-06-20 20:33] LABS: Anisocytosis Slight; HCT 21.3 % (39.0-53.0); HGB 7.5 gm/dL (13.0-17.5); MCH 31.4 pg (25.0-35.0); MCHC 35.3 g/dL (31.0-37.0); MCV 88.8 fL (80.0-100.0); Mean Platelet Volume 9.1; Platelet Count 275 k/uL (150-450); RDW 16.5 % (11.5-15.5); WBC 27.2 k/uL (3.8-10.6)
[2019-06-20] MEDS: NOREPINEPHRINE 4 MG in SODIUM CHLORIDE 0.9% 250 ML IV SCH (20:52)
--- NOTE | 2019-06-20 20:54 | OP ---
OPERATIVE REPORT OPERATIVE REPORT: Placement of a left radial arterial line. PREOPERATIVE DIAGNOSIS: Upper gastrointestinal bleeding and hypotension. POSTOPERATIVE DIAGNOSIS: Upper gastrointestinal bleeding and hypotension. ANESTHESIA USED: None deployed. PROCEDURE DESCRIPTION: The left wrist was prepared in a sterile fashion. The left radial artery was palpated, cannulated, and a guidewire was placed. A Cook's catheter was inserted over the guidewire and the guidewire was removed. Good blood flow and good waveform were noted. No evidence of any immediate complications. MMODL / IJN: [id number] /
--- NOTE | 2019-06-20 21:52 | P.HPIM ---
History of Present Illness H&P Date: 06/20/19 Chief Complaint: GI bleed Edwin Salomon is a 58 yo M with PMH of alcoholic cirrhosis, tobacco abuse who presented to the ED with coffee ground emesis. He was admitted in May with a large amound of ascites and given a new diagnosis of alcoholic cirrhosis, he was seen by GI at that time and discharged on lasix and spironolactone. He states that he has completely abstained from Alcohol since early May. He was feeling well until Monday when he became nauseated at work and proceeded to have coffee ground emesis approx 7 times throughout the day. He also noted dark tarry stools. Pt experienced lightheadedness and dizziness after his vomiting. He denies any previous history of GIB. In the ED he was tachycardic, Hgb 8.0, on recheck down to 6.5 after IVF. Pt was transfused overnight and then went for EGD with GI. EGD showed old blood with no active bleed. Review of Systems All systems: negative Constitutional: Reports weakness, Denies chills, Denies fever Eyes: denies blurred vision, denies pain Ears, nose, mouth and throat: Denies headache, Denies sore throat Cardiovascular: Denies chest pain, Denies shortness of breath Respiratory: Denies cough Gastrointestinal: Reports abdominal pain, Reports coffee ground emesis, Reports melena, Reports nausea, Reports vomiting, Denies diarrhea Musculoskeletal: Denies myalgias Integumentary: Denies pruritus, Denies rash Neurological: Denies numbness, Denies weakness Psychiatric: Denies anxiety, Denies depression Endocrine: Denies fatigue, Denies weight change Past Medical History Past Medical History: No Reported History, Pneumonia Additional Past Medical History / Comment(s): liver failure History of Any Multi-Drug Resistant Organisms: None Reported Past Surgical History: Orthopedic Surgery Additional Past Surgical History / Comment(s): ARTHRO OF LEFT KNEE Past Anesthesia/Blood Transfusion Reactions: Motion Sickness Past Psychological History: No Psychological Hx Reported Smoking Status: Current every day smoker Past Alcohol Use History: Daily, Heavy Additional Past Alcohol Use History / Comment(s): SMOKED SINCE 13 YRS, LESS THAN 2 PPD. PATIENT ADMITS TO BEING AN ALCOHOLIC (A FIFTH A DAY). Past Drug Use History: None Reported - Past Family History Mother Family Medical History: No Reported History Medications and Allergies Home Medications Medication Instructions Recorded Confirmed Type Ensure 1 can PO BID 05/09/19 06/19/19 History Furosemide [Lasix] 40 mg PO DAILY #30 tab 05/13/19 06/19/19 Rx Spironolactone [Aldactone] 100 mg PO DAILY 06/19/19 06/19/19 History Allergies Allergy/AdvReac Type Severity Reaction Status Date / Time ragweed pollen Allergy Itching Verified 06/19/19 16:58 Physical Exam Vitals: Vital Signs Temp Pulse Pulse Resp BP BP Pulse Ox 06/20/19 19:15 94 19 98 06/20/19 19:00 97 20 99 06/20/19 18:45 96 18 100 06/20/19 18:30 92 20 97 06/20/19 18:15 92 19 96 06/20/19 18:00 93 21 100 06/20/19 17:45 92 23 93/54 100 06/20/19 17:30 85 25 H 93/54 100 06/20/19 17:15 86 24 95/50 100 06/20/19 17:00 97.9 F 81 30 H 100 06/20/19 16:45 81 27 H 80/57 98 06/20/19 16:30 80 26 H 121/54 100 06/20/19 16:20 97.1 F L 81 18 112/50 06/20/19 16:15 23 95/55 100 06/20/19 16:00 76 27 H 97/60 100 06/20/19 15:45 75 28 H 105/82 100 06/20/19 15:30 27 H 93/57 100 06/20/19 15:15 68 26 H 103/54 100 06/20/19 15:00 66 18 100 06/20/19 14:45 66 22 100 06/20/19 14:30 64 18 94/65 100 06/20/19 14:15 76 13 74/47 82 L 06/20/19 14:00 73 18 74/53 96 06/20/19 13:57 96.7 F L 79 18 98/45 06/20/19 13:45 75 18 83/39 100 06/20/19 13:30 95 F L 71 27 H 76/37 100 06/20/19 13:27 94.5 F L 78 19 83/39 06/20/19 13:17 34.3 F L 69 22 76/37 100 06/20/19 13:15 72 10 L 74/52 100 06/20/19 13:14 34.6 F L 77 14 74/52 06/20/19 13:00 73 28 H 76/52 93 L 06/20/19 12:54 82 19 06/20/19 10:29 976 F H 100 20 96/61 100 06/20/19 10:19 97.7 F 92 16 91/62 96 06/20/19 10:00 92 20 06/20/19 09:00 97.5 F L 92 20 76/50 97 06/20/19 07:00 83 86/61 06/20/19 06:09 83 20 98/66 100 06/20/19 05:31 89 20 92/63 100 06/20/19 04:40 87/62 06/20/19 03:41 97.7 F 89 18 99/63 100 06/20/19 03:35 98.0 F 91 20 91/62 06/20/19 01:09 98.0 F 69 18 80/54 100 06/20/19 00:39 97.0 F L 80 18 92/55 100 06/20/19 00:29 98.0 F 90 18 87/59 100 06/20/19 00:11 98.9 F 65 20 95/54 06/19/19 22:40 98.9 F 65 20 95/54 100 06/19/19 22:37 98.6 F 97 20 81/59 100 06/19/19 22:10 98.1 F 93 20 85/54 100 06/19/19 22:00 97.6 F 97 18 83/52 98 Intake and Output 06/20/19 06/20/19 06/20/19 06:59 14:59 22:59 Intake Total 310 4585 1126.416 Output Total 175 105 145 Balance 135 4480 981.416 Intake: IV 3655 800 Invasive Line 1 40 Invasive Line 2 40 Octreotide 500 mcg In 50 125 Sodium Chloride 0.9% 250 ml @ 50 MCG/HR 25 mls/hr IV .Q10H [facility] Rx#: [id number] Sodium Chloride 0.9% 1, 2225 625 000 ml @ 125 mls/hr IV . Q8H [facility] Rx#:[id number] cefTRIAXone 1 gm In 50 Sodium Chloride 0.9% 50 ml @ 100 mls/hr IVPB Q24HR [facility] Rx#:[id number] Intake, IV Titration 16.416 Amount Norepinephrine 4 mg In 16.416 Sodium Chloride 0.9% 250 ml @ 0.05 MCG/KG/MIN 13. 566 mls/hr IV .[id number] [facility] Rx#:[id number] Oral 0 Blood Product 310 930 310 Rc As-1 Unit 310 [id number] Rc As-1 Unit 0 [id number] Rc As-3 Unit 310 [id number] Rc As-3 Unit 0 310 [id number] Output: Urine 175 105 145 Other: Voiding Method Indwelling Catheter Indwelling Catheter # Bowel Movements 2 ABP, PAP, CO, CI - Last 8 Hours Arterial Blood Pressure 97/51 Arterial Blood Pressure 92/53 Arterial Blood Pressure 93/49 Arterial Blood Pressure 96/52 Arterial Blood Pressure 98/53 Arterial Blood Pressure 98/53 Arterial Blood Pressure 92/52 Arterial Blood Pressure 104/51 Arterial Blood Pressure 105/55 Arterial Blood Pressure 102/52 Arterial Blood Pressure 93/54 Arterial Blood Pressure 112/56 Arterial Blood Pressure 106/60 Arterial Blood Pressure 112/59 Arterial Blood Pressure 114/61 Arterial Blood Pressure 111/64 Arterial Blood Pressure 111/71 Arterial Blood Pressure 115/71 General: well nourished, well developed, in mild distress. Vitals reviewed Eyes: PERRL, EOMI, conjunctiva normal HENT: normocephalic, mucus membranes moist Neck: supple, no JVD Lungs: normal respiratory effort, no wheezes or rales CV: Tachycardic, normal rhythm, no murmur. Peripheral pulses 2+ Abdomen: soft, nondistended, no organomegaly. Generalized tenderness Lymph: no cervical or axillary LAD Skin: warm and dry. Results CBC & Chem 7: 06/20/19 20:24 06/20/19 05:41 Labs: Abnormal Lab Results - Last 24 Hours (Table) 06/19/19 06/20/19 06/20/19 Range/Units 14:35 05:41 05:41 WBC 17.4 H (3.8-10.6) k/uL RBC 2.61 L (4.30-5.90) m/uL Hgb 8.0 L (13.0-17.5) gm/dL Hct 24.2 L (39.0-53.0) % RDW 16.0 H (11.5-15.5) % Neutrophils # 13.6 H (1.3-7.7) k/uL Monocytes # 1.2 H (0-1.0) k/uL ABG pCO2 (35-45) mmHg ABG pO2 (83-108) mmHg ABG O2 Saturation (94-97) % Chloride 110 H (98-107) mmol/L BUN 50 H (9-20) mg/dL Glucose 122 H (74-99) mg/dL POC Glucose (mg/dL) (75-99) mg/dL Calcium 8.1 L (8.4-10.2) mg/dL Total Bilirubin 2.1 H (0.2-1.3) mg/dL Total Protein 5.1 L (6.3-8.2) g/dL Albumin 2.4 L (3.5-5.0) g/dL Crossmatch See Detail 06/20/19 06/20/19 06/20/19 Range/Units 10:10 13:25 13:52 WBC 17.3 H (3.8-10.6) k/uL RBC 2.05 L (4.30-5.90) m/uL Hgb 6.5 L* D (13.0-17.5) gm/dL Hct 18.8 L* (39.0-53.0) % RDW 16.5 H (11.5-15.5) % Neutrophils # 13.8 H (1.3-7.7) k/uL Monocytes # (0-1.0) k/uL ABG pCO2 33 L (35-45) mmHg ABG pO2 148 H (83-108) mmHg ABG O2 Saturation 99.2 H (94-97) % Chloride (98-107) mmol/L BUN (9-20) mg/dL Glucose (74-99) mg/dL POC Glucose (mg/dL) 156 H (75-99) mg/dL Calcium (8.4-10.2) mg/dL Total Bilirubin (0.2-1.3) mg/dL Total Protein (6.3-8.2) g/dL Albumin (3.5-5.0) g/dL Crossmatch 06/20/19 06/20/19 06/20/19 Range/Units 17:30 18:30 20:24 WBC 22.4 H 27.2 H (3.8-10.6) k/uL RBC 2.86 L 2.40 L (4.30-5.90) m/uL Hgb 8.9 L D 7.5 L (13.0-17.5) gm/dL Hct 25.3 L 21.3 L (39.0-53.0) % RDW 16.1 H 16.5 H (11.5-15.5) % Neutrophils # 19.7 H (1.3-7.7) k/uL Monocytes # (0-1.0) k/uL ABG pCO2 (35-45) mmHg ABG pO2 (83-108) mmHg ABG O2 Saturation (94-97) % Chloride (98-107) mmol/L BUN (9-20) mg/dL Glucose (74-99) mg/dL POC Glucose (mg/dL) 134 H (75-99) mg/dL Calcium (8.4-10.2) mg/dL Total Bilirubin (0.2-1.3) mg/dL Total Protein (6.3-8.2) g/dL Albumin (3.5-5.0) g/dL Crossmatch Thrombosis Risk Factor Assmnt - Choose All That Apply Any of the Below Risk Factors Present?: No Assessment and Plan (1) Hypoalbuminemia Current Visit: Yes Status: Acute Code(s): E88.09 - OTH DISORDERS OF PLASMA- PROTEIN METABOLISM, NEC SNOMED Code(s): 083009166 (2) Upper GI hemorrhage Current Visit: Yes Status: Acute Code(s): K92.2 - GASTROINTESTINAL HEMOR RHAGE, UNSPECIFIED SNOMED Code(s): 58368898 (3) Abdominal pain Current Visit: No Status: Acute Code(s): R10.9 - UNSPECIFIED ABDOMINAL PAIN SNOMED Code(s): 26450795 (4) Alcoholic cirrhosis of liver with ascites Current Visit: No Status: Acute Code(s): K70.31 - ALCOHOLIC CIRRHOSIS OF LIVER WITH ASCITES SNOMED Code(s): 494603602 (5) Elevated AST (SGOT) Current Visit: No Status: Acute Code(s): R74.0 - NONSPEC ELEV OF LEVELS OF T RANSAMNS & LACTIC ACID DEHYDRGNSE SNOMED Code(s): 760802072 Plan: 1. Upper GI bleed. Now resolved. GI following. Continue PPI bid. Transfuse to keep Hgb >7 2. Acute blood loss anemia. S/p 4 U PRBC. Continue to monitor 3. Alcoholic cirrhosis with ascites. SBP prophylaxis per GI DVT prophylaxis contraindicated
[2019-06-20 23:30] LABS: ABG Base Excess -15.2 mmol/L; ABG HCO3 11 mmol/L (21-25); ABG Oxygen Saturation 94.3 % (94-97); ABG PCO2 23 mmHg (35-45); ABG PO2 68 mmHg (83-108); ABG TCO2 12 mmol/L (19-24); Allen Test Performed? Yes
[2019-06-20 23:40] LABS: Anisocytosis Slight; MCH 30.7 pg (25.0-35.0); MCHC 33.7 g/dL (31.0-37.0); MCV 91.1 fL (80.0-100.0); Mean Platelet Volume 9.5; Platelet Count 218 k/uL (150-450); Poikilocytosis Slight; RBC 2.06 m/uL (4.30-5.90); RDW 16.4 % (11.5-15.5); WBC 26.5 k/uL (3.8-10.6)
[2019-06-20 23:52] LABS: HCT 18.8 % (39.0-53.0); HGB 6.3 gm/dL (13.0-17.5)
[2019-06-21] MEDS ORDERED: CISATRACURIUM 2 MG/ML 5 ML VIAL IV ONE (00:04)
[2019-06-21] MEDS ORDERED: CISATRACURIUM 200 MG in SODIUM CHLORIDE 0.9% 180 ML IV SCH (00:15)
[2019-06-21] MEDS: OCTREOTIDE 500 MCG in SODIUM CHLORIDE 0.9% 250 ML IV SCH ×3 (00:25→19:31)
[2019-06-21] MEDS: SODIUM CHLORIDE 0.9% 50 ML with VASOPRESSIN 20 UNIT IVPB SCH ×4 (00:25→05:48)
[2019-06-21] MEDS: NOREPINEPHRINE 4 MG in SODIUM CHLORIDE 0.9% 250 ML IV SCH ×6 (00:26→08:34)
[2019-06-21 00:48] LABS: Mean Platelet Volume 9.1; Platelet Count 158 k/uL (150-450)
[2019-06-21 00:55] LABS: INR 1.7 (<1.2); Partial Thromboplastin Time 37.1 sec (22.0-30.0)
[2019-06-21 01:01] LABS: AST 37 U/L (17-59); African American GFR (CKD) >90 (>60 ml/min/1.73 sqM); Albumin 1.1 g/dL (3.5-5.0); Alkaline Phosphatase <20 U/L (38-126); Blood Urea Nitrogen 43 mg/dL (9-20); Chloride 120 mmol/L (98-107); Glucose 203 mg/dL (74-99); Non-African American GFR(CKD) >90 (>60 ml/min/1.73 sqM); Potassium 4.6 mmol/L (3.5-5.1); Sodium 141 mmol/L (137-145); Total Bilirubin 0.8 mg/dL (0.2-1.3); Total Protein 2.4 g/dL (6.3-8.2)
[2019-06-21 01:06] LABS: Anion Gap 12 mmol/L
[2019-06-21 01:08] LABS: ALT 22 U/L (4-49); Carbon Dioxide 9 mmol/L (22-30)
[2019-06-21] MEDS: SODIUM CHLORIDE 0.9% 1,000 ML IV SCH ×3 (02:10→16:49)
[2019-06-21] MEDS: DEXTROSE 5% IN WATER 1,000 ML with SODIUM BICARB (1 MEQ/ML) 150 ML IV SCH ×2 (02:16→18:07)
[2019-06-21] MEDS ORDERED: CALCIUM GLUCONATE 1 GM in SODIUM CHLORIDE 0.9% 100 ML IVPB ONE (02:32)
[2019-06-21] MEDS ORDERED: SODIUM BICARB 8.4% 50 ML SYR (1 MEQ/ML) IV STA ×4 (02:32→13:16)
[2019-06-21] MEDS ORDERED: FUROSEMIDE 10 MG/ML 4 ML VIAL IV ONE (02:34)
[2019-06-21] MEDS: METOCLOPRAMIDE 5 MG/ML 2 ML VIAL IVP SCH (02:36)
[2019-06-21] MEDS: PROPOFOL 1,000 MG in EMPTY BAG 1 BAG IV SCH ×2 (05:07→13:11)
[2019-06-21 05:43] LABS: Glucose,Whole Blood 163 mg/dL (75-99)
[2019-06-21] MEDS ORDERED: HYDROmorphone 1 MG/ML 1 ML SYRINGE IVP PRN (05:57)
[2019-06-21 06:12] LABS: African American GFR (CKD) >90 (>60 ml/min/1.73 sqM); Anion Gap 13 mmol/L; Blood Urea Nitrogen 43 mg/dL (9-20); Calcium 6.5 mg/dL (8.4-10.2); Carbon Dioxide 12 mmol/L (22-30); Chloride 119 mmol/L (98-107); Glucose 149 mg/dL (74-99); Non-African American GFR(CKD) 84 (>60 ml/min/1.73 sqM); Sodium 144 mmol/L (137-145)
[2019-06-21 06:25] LABS: HCT 33.3 % (39.0-53.0); MCH 31.2 pg (25.0-35.0); MCHC 32.2 g/dL (31.0-37.0); Mean Platelet Volume 9.9; Platelet Count 164 k/uL (150-450); RBC 3.44 m/uL (4.30-5.90); RDW 15.3 % (11.5-15.5)
[2019-06-21 06:30] LABS: HGB 10.7 gm/dL (13.0-17.5)
[2019-06-21 06:43] LABS: Glucose,Whole Blood 163 mg/dL (75-99)
[2019-06-21] MEDS: INSULIN ASPART (NovoLOG) 100 UNIT/ML VIAL SQ SCH ×3 (06:59→18:29)
[2019-06-21 07:01] LABS: Band Neutrophils % 11 %; Large Platelets Present; Lymphocytes # (M) 2.13 k/uL (1.0-4.8); Metamyelocytes % 1 %; Monocytes # (M) 1.52 k/uL (0-1.0); Neutrophils % (M) 78 %; Nucleated Red Blood Cells 8 /100 WBC (0-0); Polychromasia Present; Total Cells Counted 200; WBC 30.4 k/uL (3.8-10.6)
[2019-06-21 07:21] LABS: MCV 96.8 fL (80.0-100.0)
[2019-06-21 07:40] LABS: ABG Base Excess -19.2 mmol/L; ABG HCO3 12 mmol/L (21-25); ABG Oxygen Saturation 92.5 % (94-97); ABG PCO2 46 mmHg (35-45); ABG PO2 74 mmHg (83-108); ABG TCO2 13 mmol/L (19-24)
[2019-06-21 07:41] LABS: ABG PH 7.02 (7.35-7.45); Allen Test Performed? no
--- NOTE | 2019-06-21 08:31 | XR ---
EXAMINATION TYPE: XR chest 1V portable DATE OF EXAM: 06/21/2019 COMPARISON: 06/20/2019 HISTORY: Ventilatory dependent respiratory failure. TECHNIQUE: Single frontal view of the chest is obtained. FINDINGS: There is satisfactory placement of the enteric and endotracheal tubes. There is improved a eration of the left lung with linear left basilar airspace disease, likely atelectasis. Right hemidia phragm elevation and right basilar atelectasis is also seen. Cardiomediastinal silhouette is partiall y obscured but overall stable. No sizable pneumothorax. IMPRESSION: Improved aeration of the left lung with bibasilar linear opacities remaining, likely ate lectasis.
[2019-06-21] MEDS: CHLORHEXIDINE GLUCONATE 15 ML CUP MUCOUS MEM SCH (10:06)
[2019-06-21] MEDS: PANTOPRAZOLE 40 MG/10 ML VIAL IV SCH ×2 (10:07→20:55)
[2019-06-21] MEDS: NOREPINEPHRINE 32 MG in SODIUM CHLORIDE 0.9% 218 ML IV SCH ×2 (11:20→17:16)
[2019-06-21] MEDS ORDERED: IV FLUID CONTINUATION 1,000 ML IV ONE (12:06)
--- NOTE | 2019-06-21 12:08 | PCN ---
PROCEDURE NOTE PROCEDURE: Placement of right femoral triple-lumen catheter. PREOPERATIVE DIAGNOSIS: Upper gastrointestinal bleeding. POSTOPERATIVE DIAGNOSIS: Upper gastrointestinal bleeding. ANESTHESIA USED: 2 mL of 1% lidocaine. PROCEDURE: The patient was placed in the supine position, the right groin was prepared in a sterile fashion and drapes were applied. The right femoral vein was easily cannulated, a guidewire was placed. A triple-lumen catheter was inserted over the guidewire, and the guidewire was removed. Good blood flow was noted in the 3 different ports of the triple-lumen catheter. Procedure was well tolerated, line was secured using 3.0 silk sutures. No evidence of any immediate complications. MMODL / IJN: [id number] /
--- NOTE | 2019-06-21 12:34 | P.PN ---
Subjective Progress Note Date: 06/21/19 Principal diagnosis: Massive upper GI bleeding 58-year-old white male with past history of alcoholic cirrhosis, current smoker, who presented to the hospital on 06/19/2019 with complaints of coffee-ground emesis. Onset of symptoms 1 day prior to presentation. Patient's EtOH use has been in remission since early May 2019. Patient was having coffee-ground emesis and black tarry stools. Is complaining of mild abdominal distention, fatigue and lightheadedness. Patient denied any prior episodes of GI bleeding, he had been a heavy alcohol user drinking a fifth per day for 30 years. Admission blood work showed a white blood cell count of 17.4, hemoglobin of 8.0, of note patient's previous hemoglobin in May 2019 was 12.6. While inpatient patient continued to vomit, and he was evaluated by gastroenterology, and today on he was taken to the OR for EGD, which showed old blood in the esophagus, stomach and small bowel with no active bleeding. The stomach was copiously suctioned however old clots were not removed, his distal esophagus was tortuous with small nonbleeding varices without high risk stigmata for recent bleeding. Patient was started on PPI therapy, on octreotide infusion, he has received a total of 4 units of packed red blood cells, 2 half liters in the fluid boluses, patient was left intubated on mechanical ventilation and transfe rred to the intensive care unit for close hemodynamic monitoring with intention for repeat EGD tomorrow on 06/21/2019. Patient is currently intubated, sedated however he is agitated and a ventilator, and a van infusion is being started, is currently hypotensive with a systolic in the 70s, he is receiving a fluid bolus in his 40s and the blood is infusing, his current vent settings are assist-cont rol with a rate of 12, tidal 04/09/1952, FiO2 100%, and PEEP of 5. His most recent hemoglobin is 8.9 after the blood transfusion, his white count is 22.4, and patient is on Rocephin for SBP. Postop blood gases showed pO2 of 148, pCO2 33, pH of 7.42 this was done on 100% FiO2 and the above-mentioned vent settings. Patient was reevaluated today on 06/21/2019. Patient had an extremely rodolfo course over the last 24 hours. Remains intubated and on mechanical ventilation. Requiring pressors in the form of norepinephrine and vasopressin. He is still on mechanical ventilation with tidal volume of 550 assist-control rate of 18 FiO2 is 50% PEEP is 5. Patient is requiring norepinephrine, 0.7 mcg/kg/m, requiring Nimbex and he is also requiring propofol, and vasopressin. Blood pressure is extremely marginal, patient received so far a total of 8 units of packed RBCs, and 3 units of fresh frozen plasma. His hemoglobin today is 10.7. INR is 1.7 ABG showed a pO2 of 74 pCO2 of 46 pH of 7.0 to hence more sodium bicarb was given. And he remains on a sodium bicarb drip. Potassium this morning is 5.0. Bicarb remains low. Renal functioning is holding with a BUN of 43 creatinine of 0.98. His ascites seems to be getting worse, hence I recommended a bedside paracentesis by interventional radiology, ultrasound guided. Continues to have losing and bleeding through the nasogastric tube, and he is supposed to undergo EGD by gastroenterology. This is yet to be done. I have consulted general surgery mostly because of the massive GI bleeding, and hopefully based on the EGD findings today, we'll make further decisions as to whether the patient needs medical management, surgical management, or even potentially transferring the patient to a tertiary care center. Today I placed a right femoral triple-lumen catheter because of poor peripheral venous access, and the patient has been requiring multiple drips. Objective - Vital Signs Vital signs: Vital Signs Temp 97.3 F L 06/21/19 12:00 Pulse 114 H 06/21/19 12:15 Resp 18 06/21/19 12:15 BP 91/66 06/21/19 12:15 Pulse Ox 94 L 06/21/19 12:15 Intake & Output 06/20/19 06/21/19 06/21/19 18:59 06:59 18:59 Intake Total 5545 7613.092 2745.976 Output Total 230 1085 113 Balance 5315 6528.092 2632.976 Weight 87.3 kg Intake: IV 4305 5630 1059 Calcium Gluconate 1 gm In 100 Sodium Chloride 0.9% 100 ml @ 100 mls/hr IVPB ONCE ONE Rx#:[id number] Dextrose 5% in Water 1, 450 300 000 ml @ 75 mls/hr IV . [id number] BRIGID with Sodium Bicarb (1 Meq/ml) 150 ml Rx#:[id number] Invasive Line 1 40 Invasive Line 2 40 Normal Saline Pressure 9 Bag Octreotide 500 mcg In 150 300 100 Sodium Chloride 0.9% 250 ml @ 50 MCG/HR 25 mls/hr IV .[facility]H [facility] Rx#: [id number] Sod Bicarb IVP 100 Sodium Chloride 0.9% 1, 2725 1500 500 000 ml @ 125 mls/hr IV . Q8H [facility] Rx#:[id number] Sodium Chloride 0.9% 1, 1500 000 ml @ 999 mls/hr IV . Q1H1M ONE Rx#:[id number] cefTRIAXone 1 gm In 50 50 Sodium Chloride 0.9% 50 ml @ 100 mls/hr IVPB Q24HR [facility] Rx#:[id number] Intake, IV Titration 1283.092 747.976 Amount Cisatracurium 200 mg In 17.092 Sodium Chloride 0.9% 180 ml @ 1 MCG/KG/MIN 4.273 mls/hr IV .Q24H [facility] Rx#: [id number] Norepinephrine 32 mg In 4.774 Sodium Chloride 0.9% 218 ml @ 0.7 MCG/KG/MIN 28. 645 mls/hr IV .Q8H44M [facility] Rx#:[id number] Norepinephrine 4 mg In 1016.000 503.619 Sodium Chloride 0.9% 250 ml @ 0.05 MCG/KG/MIN 13. 566 mls/hr IV .[id number] [facility] Rx#:[id number] Octreotide 500 mcg In 250 239.583 Sodium Chloride 0.9% 250 ml @ 50 MCG/HR 25 mls/hr IV .Q10H [facility] Rx#: [id number] Blood Product 1240 2480 919 Ffp 24 Cpd Unit 290 [id number] Ffp 24 Cpd Unit 323 [id number] Ffp 24 Cpd Unit 306 [id number] Rc As-1 Unit 310 [id number] Rc As-1 Unit 310 [id number] Rc As-1 Unit 310 [id number] Rc As-3 Unit 310 [id number] Rc As-3 Unit 310 [id number] Rc As-3 Unit 310 [id number] Other 20 Ffp 24 Cpd Unit 20 [id number] Output: Gastric Drainage 150 Urine 230 935 113 Other: Voiding Method Indwelling Catheter Indwelling Catheter # Bowel Movements 1 ABP, PAP, CO, CI - Last Documented Arterial Blood Pressure 80/52 - Exam GENERAL EXAM: Revealed 58-year-old white male on mechanical ventilation, sedated, and paralyzed. HEAD: Normocephalic/atraumatic. Intact endotracheal tube and orogastric tube. EYES: Normal reaction of pupils, equal size. Conjunctiva pale, no icterus NOSE: Clear with pink turbinates. NG tube has been inserted and connected to low intermittent suction, and is draining dark sanguinous output. NECK: No neck masses, no JVD, no stridor. Endotracheal tube seems to be intact. CHEST: No chest wall deformity. Symmetrical expansion. LUNGS: Minimal fine crackles at the bases no rhonchi no wheezes CVS: Regular rate and rhythm, normal S1 and S2, no gallops, no murmurs, no rubs ABDOMEN: Soft, nontender, distended. No hepatosplenomegaly, normal bowel sounds, no guarding or rigidity. Positive ascites. EXTREMITIES: No clubbing, no edema, no cyanosis, 2+ pulses and upper and lower extremities. MUSCULOSKELETAL: No deformities. SKIN: No rashes CENTRAL NERVOUS SYSTEM: Intubated, sedated, and paralyzed, could not be assessed. - Labs CBC & Chem 7: 06/21/19 05:44 06/21/19 05:44 Labs: Abnormal Lab Results - Last 24 Hours (Table) 06/19/19 06/20/19 06/20/19 Range/Units 14:35 13:25 13:52 WBC (3.8-10.6) k/uL RBC (4.30-5.90) m/uL Hgb (13.0-17.5) gm/dL Hct (39.0-53.0) % RDW (11.5-15.5) % Neutrophils # (1.3-7.7) k/uL Neutrophils # (Manual) (1.3-7.7) k/uL Monocytes # (Manual) (0-1.0) k/uL Metamyelocytes # (Man) (0) k/uL Nucleated RBCs (0-0) /100 WBC PT (9.0-12.0) sec INR (<1.2) APTT (22.0-30.0) sec ABG pH (7.35-7.45) ABG pCO2 33 L (35-45) mmHg ABG pO2 148 H (83-108) mmHg ABG HCO3 (21-25) mmol/L ABG Total CO2 (19-24) mmol/L ABG O2 Saturation 99.2 H (94-97) % Chloride (98-107) mmol/L Carbon Dioxide (22-30) mmol/L BUN (9-20) mg/dL Glucose (74-99) mg/dL POC Glucose (mg/dL) 156 H (75-99) mg/dL Calcium (8.4-10.2) mg/dL Alkaline Phosphatase (38-126) U/L Total Protein (6.3-8.2) g/dL Albumin (3.5-5.0) g/dL Crossmatch See Detail 06/20/19 06/20/19 06/20/19 Range/Units 17:30 18:30 20:24 WBC 22.4 H 27.2 H (3.8-10.6) k/uL RBC 2.86 L 2.40 L (4.30-5.90) m/uL Hgb 8.9 L D 7.5 L (13.0-17.5) gm/dL Hct 25.3 L 21.3 L (39.0-53.0) % RDW 16.1 H 16.5 H (11.5-15.5) % Neutrophils # 19.7 H (1.3-7.7) k/uL Neutrophils # (Manual) (1.3-7.7) k/uL Monocytes # (Manual) (0-1.0) k/uL Metamyelocytes # (Man) (0) k/uL Nucleated RBCs (0-0) /100 WBC PT (9.0-12.0) sec INR (<1.2) APTT (22.0-30.0) sec ABG pH (7.35-7.45) ABG pCO2 (35-45) mmHg ABG pO2 (83-108) mmHg ABG HCO3 (21-25) mmol/L ABG Total CO2 (19-24) mmol/L ABG O2 Saturation (94-97) % Chloride (98-107) mmol/L Carbon Dioxide (22-30) mmol/L BUN (9-20) mg/dL Glucose (74-99) mg/dL POC Glucose (mg/dL) 134 H (75-99) mg/dL Calcium (8.4-10.2) mg/dL Alkaline Phosphatase (38-126) U/L Total Protein (6.3-8.2) g/dL Albumin (3.5-5.0) g/dL Crossmatch 06/20/19 06/20/19 06/21/19 Range/Units 23:06 23:27 00:15 WBC 26.5 H (3.8-10.6) k/uL RBC 2.06 L (4.30-5.90) m/uL Hgb 6.3 L* (13.0-17.5) gm/dL Hct 18.8 L* (39.0-53.0) % RDW 16.4 H (11.5-15.5) % Neutrophils # (1.3-7.7) k/uL Neutrophils # (Manual) (1.3-7.7) k/uL Monocytes # (Manual) (0-1.0) k/uL Metamyelocytes # (Man) (0) k/uL Nucleated RBCs (0-0) /100 WBC PT 17.0 H (9.0-12.0) sec INR 1.7 H (<1.2) APTT 37.1 H (22.0-30.0) sec ABG pH 7.30 L (7.35-7.45) ABG pCO2 23 L (35-45) mmHg ABG pO2 68 L (83-108) mmHg ABG HCO3 11 L (21-25) mmol/L ABG Total CO2 12 L (19-24) mmol/L ABG O2 Saturation (94-97) % Chloride (98-107) mmol/L Carbon Dioxide (22-30) mmol/L BUN (9-20) mg/dL Glucose (74-99) mg/dL POC Glucose (mg/dL) (75-99) mg/dL Calcium (8.4-10.2) mg/dL Alkaline Phosphatase (38-126) U/L Total Protein (6.3-8.2) g/dL Albumin (3.5-5.0) g/dL Crossmatch 06/21/19 06/21/19 06/21/19 Range/Units 00:15 05:42 05:44 WBC 30.4 H (3.8-10.6) k/uL RBC 3.44 L (4.30-5.90) m/uL Hgb 10.7 L D (13.0-17.5) gm/dL Hct 33.3 L (39.0-53.0) % RDW (11.5-15.5) % Neutrophils # (1.3-7.7) k/uL Neutrophils # (Manual) 27.00 H (1.3-7.7) k/uL Monocytes # (Manual) 1.52 H (0-1.0) k/uL Metamyelocytes # (Man) 0.30 H (0) k/uL Nucleated RBCs 8 H (0-0) /100 WBC PT (9.0-12.0) sec INR (<1.2) APTT (22.0-30.0) sec ABG pH (7.35-7.45) ABG pCO2 (35-45) mmHg ABG pO2 (83-108) mmHg ABG HCO3 (21-25) mmol/L ABG Total CO2 (19-24) mmol/L ABG O2 Saturation (94-97) % Chloride 120 H (98-107) mmol/L Carbon Dioxide 9 L* (22-30) mmol/L BUN 43 H (9-20) mg/dL Glucose 203 H (74-99) mg/dL POC Glucose (mg/dL) 163 H (75-99) mg/dL Calcium 6.0 L* (8.4-10.2) mg/dL Alkaline Phosphatase <20 L (38-126) U/L Total Protein 2.4 L (6.3-8.2) g/dL Albumin 1.1 L (3.5-5.0) g/dL Crossmatch 06/21/19 06/21/19 06/21/19 Range/Units 05:44 06:41 07:38 WBC (3.8-10.6) k/uL RBC (4.30-5.90) m/uL Hgb (13.0-17.5) gm/dL Hct (39.0-53.0) % RDW (11.5-15.5) % Neutrophils # (1.3-7.7) k/uL Neutrophils # (Manual) (1.3-7.7) k/uL Monocytes # (Manual) (0-1.0) k/uL Metamyelocytes # (Man) (0) k/uL Nucleated RBCs (0-0) /100 WBC PT (9.0-12.0) sec INR (<1.2) APTT (22.0-30.0) sec ABG pH 7.02 L* (7.35-7.45) ABG pCO2 46 H (35-45) mmHg ABG pO2 74 L (83-108) mmHg ABG HCO3 12 L (21-25) mmol/L ABG Total CO2 13 L (19-24) mmol/L ABG O2 Saturation 92.5 L (94-97) % Chloride 119 H (98-107) mmol/L Carbon Dioxide 12 L (22-30) mmol/L BUN 43 H (9-20) mg/dL Glucose 149 H (74-99) mg/dL POC Glucose (mg/dL) 163 H (75-99) mg/dL Calcium 6.5 L (8.4-10.2) mg/dL Alkaline Phosphatase (38-126) U/L Total Protein (6.3-8.2) g/dL Albumin (3.5-5.0) g/dL Crossmatch Assessment and Plan Assessment: Impression: 1 masses upper GI bleeding most likely secondary to esophageal varices unless otherwise. 2 acute hypoxic respiratory failure secondary to massive GI bleeding and aspiration into the airways. 3 alcohol related liver disease/liver cirrhosis and portal hypertension. 4 massive ascites secondary to portal hypertension. 5 history of heavy alcohol abuse. 6 status post attempted EGD but was nondiagnostic. Recommendation: Continue ventilatory support. Continue propofol, and Nimbex, continue narcotics while on Nimbex. Continue Protonix. Continue supportive care measures including blood transfusion and blood products as necessary. Continue hemodynamic support/pressors Continue to monitor hemoglobin and hematocrit and transfuse as needed Arrange for interventional radiology to perform paracentesis today. Arrange for gastroenterology to address the issue again and perform EGD Arrange for general surgery evaluation and to be on backup if necessary. Placed a right femoral triple-lumen catheter for good venous access. Continue octreotide. Overall prognosis remains extremely poor and guarded. Discussed his condition with his , and his son. Critical care time is 40 minutes not including the time spent on line placement. We'll continue to follow. Time with Patient: Greater than 30
--- NOTE | 2019-06-21 12:57 | P.PCN ---
Date of Procedure: 06/21/19 Description of Procedure: BRIEF HISTORY: 58-year-old male with a previous history of heavy alcohol use for which she discontinued on 05/16/2019 previously seen for decompensated cirrhosis with abdominal distention and ascites who presented to the hospital with concerns or GI bleeding. The patient reports multiple episodes of coffee-ground emesis as well as melena starting yesterday. Previously he had been drinking a fifth per day for 30 years. On last hospitalization and was discharged with diuretic therapy. He denies any prior episodes of GI bleeding. Remote history of colonoscopy approximately 5 years ago significant for diverticulosis with no EGD in the past. He denies any abdominal pain. The patient's hemoglobin was 8.6 on presentation and subsequently fell to 6.6 for which he was transfused. The patient was taken for EGD yesterday with findings of small distal esophageal varices without red eddie sign, active bleeding or evidence of recent bleed. The patient's distal esophagus was somewhat tortuous and a large amount of old blood was noted in the stomach. This was suctioned copiously however was unable to be completely cleared. Plan was for prokinetic agents, leaving the patient intubated on in octreotide drip and IV PPI with repeat endoscopy planned for today. Overnight the patient had further episodes of dark melanotic stool and some blood from his NG tube. He has required pressure support with vasopressin and levophed. PROCEDURE PERFORMED: Esophagogastroduodenoscopy. PREOPERATIVE DIAGNOSIS: Decompensated alcoholic cirrhosis, upper GI bleed, anemia of acute blood loss. ESTIMATED BLOOD LOSS: Minimal. IV sedation per anesthesia. PROCEDURE: After informed consent was obtained, the patient was brought into the endoscopy unit. IV sedation was administered by Anesthesia under continuous monitoring. Initially the Olympus GIF-190 video endoscope was inserted into the mouth. Esophagus intubated without any difficulty. It was gradually advanced into the the distal esophagus where esophageal varices were once again identified without active bleeding noted. The whole esophagus was filled with old blood and clots. The procedure was extremely limited due to the limited ability to suction the large clots. No source of bleeding was identified with suspicion is for possible gastric varices. At this time the procedure was completed with plan for referral to tertiary center due to concerns of possible gastric varices. The patient did tolerate the procedure well. IMPRESSION: 1. Limited examination due to a large amount of old blood and clots in the esophagus and stomach. 2. Small to moderate distal esophageal varices noted without active bleeding or red eddie signs identified. RECOMMENDATIONS: The findings of this examination were discussed with joellen's and son. At this time recommendation is to continue IV PPI therapy. Octreotide drip and ceftriaxone daily should also be continued for SBP prophylaxis. Continue supportive care and blood pressure support. Would recommend transferred to [facility] for evaluation by the hepatology service in consideration for possible TIPS procedure if gastric varices are the source of upper GI bleed is suspected. The case was discussed with the patient's family at length who reviewed with the treatment plan. Would recommend proceeding with transfer when patient is medically stable.
[2019-06-21] MEDS ORDERED: SODIUM BICARB 8.4% 50 ML SYR (1 MEQ/ML) ONE (12:58)
[2019-06-21 13:04] LABS: Glucose,Whole Blood 155 mg/dL (75-99)
[2019-06-21] MEDS ORDERED: ALBUMIN HUMAN 5% 500 ML in EMPTY BAG 1 BAG IVPB STA (13:09)
[2019-06-21 13:14] LABS: ABG HCO3 17 mmol/L (21-25); ABG Oxygen Saturation 97.5 % (94-97); ABG PCO2 37 mmHg (35-45); ABG PH 7.27 (7.35-7.45); ABG PO2 84 mmHg (83-108); ABG TCO2 18 mmol/L (19-24)
[2019-06-21 13:16] LABS: Allen Test Performed? no
[2019-06-21 13:19] LABS: Ionized Calcium 4.2 mg/dL (4.5-5.3)
[2019-06-21] MEDS ORDERED: ALBUMIN HUMAN 5% 250 ML in EMPTY BAG 1 BAG IVPB STA ×2 (13:30→13:31)
[2019-06-21 13:32] LABS: Albumin 1.6 g/dL (3.5-5.0); Calcium 6.7 mg/dL (8.4-10.2); Magnesium 1.6 mg/dL (1.6-2.3); Phosphorus 7.3 mg/dL (2.5-4.5); Total Bilirubin 2.3 mg/dL (0.2-1.3); Total Protein 3.5 g/dL (6.3-8.2)
[2019-06-21 13:35] LABS: Anisocytosis Slight; MCH 32.2 pg (25.0-35.0); MCHC 34.3 g/dL (31.0-37.0); Mean Platelet Volume 11.2; Platelet Count 123 k/uL (150-450); Poikilocytosis Slight; RDW 16.1 % (11.5-15.5)
[2019-06-21 13:40] LABS: HCT 18.8 % (39.0-53.0); HGB 6.4 gm/dL (13.0-17.5)
--- NOTE | 2019-06-21 13:40 | P.DS ---
Providers Date of admission: 06/20/19 10:40 Expected date of discharge: 06/21/19 Attending physician: Bartolo Clemons MD Consults: 06/19/19 15:56 Consult Physician Urgent Consulting Provider: Cricket Corona Consult Reason/Comments: gi hemorrhage Do you want consulting provider notified?: Yes 06/20/19 11:57 Consult Physician Routine Consulting Provider: Denny Deras Consult Reason/Comments: ICU management Do you want consulting provider notified?: Yes 06/21/19 07:56 Consult Physician Stat Consulting Provider: Abel Lees Consult Reason/Comments: GI Hemorrhage Do you want consulting provider notified?: Yes Primary care physician: Emilie Hoover - Discharge Diagnosis(es) (1) Hypoalbuminemia Current Visit: Yes Status: Acute (2) Upper GI hemorrhage Current Visit: Yes Status: Acute (3) Abdominal pain Current Visit: No Status: Acute (4) Alcoholic cirrhosis of liver with ascites Current Visit: No Status: Acute (5) Elevated AST (SGOT) Current Visit: No Status: Acute Hospital Course: Edwin Salomon is a 58 yo M with PMH of alcoholic cirrhosis, tobacco abuse who presented to the ED with coffee ground emesis. He was admitted in May with a large amound of ascites and given a new diagnosis of alcoholic cirrhosis, he was seen by GI at that time and discharged on lasix and spironolactone. He states that he has completely abstained from Alcohol since early May. He was feeling well until Monday when he became nauseated at work and proceeded to have coffee ground emesis approx 7 times throughout the day. He also noted dark tarry stools. Pt experienced lightheadedness and dizziness after his vomiting. He denies any previous history of GIB. In the ED he was tachycardic, Hgb 8.0, on recheck down to 6.5 after IVF. Pt was transfused 2 units overnight and then went for EGD the morning of 06/20. He was placed on rocephin for SBP prophylaxis and maintained on IV protonix bid. EGD 06/20 at that time showed old blood with no active bleed. Pt was transferred to the ICU after his EGD and remained intubated and sedated. His postprocedural Hgb was again down to 6.5 and pt was transfused an additional 2 units PRBC on 06/20 and then 4 units overnight due to persistent melena and hypotension, for a total of 8 units PRBC as of 06/21 am. He then went for a repeat EGD on 06/21 which was technically challenging due to presence of blood and GI advised transfer to tertiary care center. Currently he is intubated and sedated on propofol and most recent BP 80/52. He is on levophed, vasopressin and octreotide. Pt was also given 3 units of FFP as well as albumin due to INR 1.7 and albumin 1.1 the morning of 06/21. Discharge exam: General: intubated and sedated white male HEENT: NGT in place with approx 300 cc blood out over last 16 hrs CV: tachycardic, regular, no murmur. No edema Lungs: no wheezing or rales Abd: soft, distended Skin: warm and dry Procedures: EGD 06/20 and EGD 06/21 Patient Condition at Discharge: Critical Plan - Discharge Summary Discharge Rx Participant: No New Discharge Prescriptions: No Action Ensure 1 can PO BID Furosemide [Lasix] 40 mg PO DAILY #30 tab Spironolactone [Aldactone] 100 mg PO DAILY Discharge Medication List Ensure 1 can PO BID 05/09/19 [History] Furosemide [Lasix] 40 mg PO DAILY #30 tab 05/13/19 [Rx] Spironolactone [Aldactone] 100 mg PO DAILY 06/19/19 [History] Follow up Appointment(s)/Referral(s): Emilie Hoover DO [Primary Care Provider] - 1-2 days Discharge Disposition: OTHER INSTITUTION NOT DEFINED
[2019-06-21] MEDS ORDERED: Magnesium Replacement Protocol 1 EACH MISC MISCELLANE PRN (13:44)
[2019-06-21 13:55] LABS: Glucose,Whole Blood 133 mg/dL (75-99)
[2019-06-21] MEDS: MAGNESIUM SULFATE-D5W PMX 1 GM in DEXTROSE/WATER 1 100ML.BAG IVPB SCH ×2 (14:01→15:51)
--- NOTE | 2019-06-21 14:04 | P.GSCN ---
History of Present Illness Consult date: 06/21/19 Reason for Consult: GI hemorrhage Requesting physician: Denny Deras History of present illness: CHIEF COMPLAINT: GI hemorrhage HISTORY OF PRESENT ILLNESS: 4-year-old male who was admitted to hospital secondary to GI bleeding. Patient underwent EGD per the GI service on 06/05 revealing old blood noted in the esophagus stomach and small bowel with no active bleeding noted. Patient was intubated and taken to the ICU. He has had around 300cc of bloody drainage from OG tube. He has received 8 units of RBCs. General surgery was consulted for further evaluation. PAST MEDICAL HISTORY: See list. PAST SURGICAL HISTORY: See list. SOCIAL HISTORY: No illicit drug use. REVIEW OF SYSTEMS: Unable to obtain secondary to mechanical ventilation PHYSICAL EXAM: VITAL SIGNS: Reviewed. GENERAL: Well-developed in no acute distress on mechanical ventilation. HEENT: ET tube noted. OG with bloody drainage. No sclera icterus. Extraocular movements grossly intact. Moist buccal mucosa. Head is atraumatic, normocephalic. ABDOMEN: Firm. Distended. Nontender. NEUROLOGIC: Sedated on mechanical ventilation LABORATORY DATA: WBC 30.4. Hemoglobin 10.7. Platelet count 164. ASSESSMENT: 1. Acute GI bleed 2. Acute blood loss anemia PLAN: Dr. Lees evaluated patient at the bedside. He discussed the patients case with Dr. Corona. Dr. Corona is scheduled to repeat EGD today. Dr. Lees recommends transfer to tertiary care center. Recommendations for transfer given to Dr. Corona and also Vandana Burnett, internal medicine [employer] Nurse practitioner note has been reviewed by physician. Signing provider agrees with the documented findings, assessment, and plan of care. Past Medical History Past Medical History: No Reported History, Pneumonia Additional Past Medical History / Comment(s): liver failure History of Any Multi-Drug Resistant Organisms: None Reported Past Surgical History: Orthopedic Surgery Additional Past Surgical History / Comment(s): ARTHRO OF LEFT KNEE Past Anesthesia/Blood Transfusion Reactions: Motion Sickness Past Psychological History: No Psychological Hx Reported Smoking Status: Current every day smoker Past Alcohol Use History: Daily, Heavy Additional Past Alcohol Use History / Comment(s): SMOKED SINCE 11 YRS, LESS THAN 2 PPD. PATIENT ADMITS TO BEING AN ALCOHOLIC (A FIFTH A DAY). Past Drug Use History: None Reported - Past Family History Mother Family Medical History: No Reported History Medications and Allergies Home Medications Medication Instructions Recorded Confirmed Type Ensure 1 can PO BID 05/09/19 06/19/19 History Furosemide [Lasix] 40 mg PO DAILY #30 tab 05/13/19 06/19/19 Rx Spironolactone [Aldactone] 100 mg PO DAILY 06/19/19 06/19/19 History Allergies Allergy/AdvReac Type Severity Reaction Status Date / Time ragweed pollen Allergy Itching Verified 06/19/19 16:58 Surgical - Exam Vital Signs Pulse Ox 99 06/19/19 14:23 Results - Labs 06/21/19 12:45 06/21/19 12:45 Abnormal Lab Results - Last 24 Hours (Table) 06/19/19 06/20/19 06/20/19 Range/Units 14:35 13:52 17:30 WBC 22.4 H (3.8-10.6) k/uL RBC 2.86 L (4.30-5.90) m/uL Hgb 8.9 L D (13.0-17.5) gm/dL Hct 25.3 L (39.0-53.0) % RDW 16.1 H (11.5-15.5) % Plt Count (150-450) k/uL Neutrophils # 19.7 H (1.3-7.7) k/uL Neutrophils # (Manual) (1.3-7.7) k/uL Monocytes # (Manual) (0-1.0) k/uL Metamyelocytes # (Man) (0) k/uL Nucleated RBCs (0-0) /100 WBC PT (9.0-12.0) sec INR (<1.2) APTT (22.0-30.0) sec ABG pH (7.35-7.45) ABG pCO2 33 L (35-45) mmHg ABG pO2 148 H (83-108) mmHg ABG HCO3 (21-25) mmol/L ABG Total CO2 (19-24) mmol/L ABG O2 Saturation 99.2 H (94-97) % Chloride (98-107) mmol/L Carbon Dioxide (22-30) mmol/L BUN (9-20) mg/dL Creatinine (0.66-1.25) mg/dL Glucose (74-99) mg/dL POC Glucose (mg/dL) (75-99) mg/dL Calcium (8.4-10.2) mg/dL Ionized Calcium Jordan (4.5-5.3) mg/dL Phosphorus (2.5-4.5) mg/dL Total Bilirubin (0.2-1.3) mg/dL AST (17-59) U/L ALT (4-49) U/L Alkaline Phosphatase (38-126) U/L Total Protein (6.3-8.2) g/dL Albumin (3.5-5.0) g/dL Crossmatch See Detail 06/20/19 06/20/19 06/20/19 Range/Units 18:30 20:24 23:06 WBC 27.2 H 26.5 H (3.8-10.6) k/uL RBC 2.40 L 2.06 L (4.30-5.90) m/uL Hgb 7.5 L 6.3 L* (13.0-17.5) gm/dL Hct 21.3 L 18.8 L* (39.0-53.0) % RDW 16.5 H 16.4 H (11.5-15.5) % Plt Count (150-450) k/uL Neutrophils # (1.3-7.7) k/uL Neutrophils # (Manual) (1.3-7.7) k/uL Monocytes # (Manual) (0-1.0) k/uL Metamyelocytes # (Man) (0) k/uL Nucleated RBCs (0-0) /100 WBC PT (9.0-12.0) sec INR (<1.2) APTT (22.0-30.0) sec ABG pH (7.35-7.45) ABG pCO2 (35-45) mmHg ABG pO2 (83-108) mmHg ABG HCO3 (21-25) mmol/L ABG Total CO2 (19-24) mmol/L ABG O2 Saturation (94-97) % Chloride (98-107) mmol/L Carbon Dioxide (22-30) mmol/L BUN (9-20) mg/dL Creatinine (0.66-1.25) mg/dL Glucose (74-99) mg/dL POC Glucose (mg/dL) 134 H (75-99) mg/dL Calcium (8.4-10.2) mg/dL Ionized Calcium Jordan (4.5-5.3) mg/dL Phosphorus (2.5-4.5) mg/dL Total Bilirubin (0.2-1.3) mg/dL AST (17-59) U/L ALT (4-49) U/L Alkaline Phosphatase (38-126) U/L Total Protein (6.3-8.2) g/dL Albumin (3.5-5.0) g/dL Crossmatch 06/20/19 06/21/19 06/21/19 Range/Units 23:27 00:15 00:15 WBC (3.8-10.6) k/uL RBC (4.30-5.90) m/uL Hgb (13.0-17.5) gm/dL Hct (39.0-53.0) % RDW (11.5-15.5) % Plt Count (150-450) k/uL Neutrophils # (1.3-7.7) k/uL Neutrophils # (Manual) (1.3-7.7) k/uL Monocytes # (Manual) (0-1.0) k/uL Metamyelocytes # (Man) (0) k/uL Nucleated RBCs (0-0) /100 WBC PT 17.0 H (9.0-12.0) sec INR 1.7 H (<1.2) APTT 37.1 H (22.0-30.0) sec ABG pH 7.30 L (7.35-7.45) ABG pCO2 23 L (35-45) mmHg ABG pO2 68 L (83-108) mmHg ABG HCO3 11 L (21-25) mmol/L ABG Total CO2 12 L (19-24) mmol/L ABG O2 Saturation (94-97) % Chloride 120 H (98-107) mmol/L Carbon Dioxide 9 L* (22-30) mmol/L BUN 43 H (9-20) mg/dL Creatinine (0.66-1.25) mg/dL Glucose 203 H (74-99) mg/dL POC Glucose (mg/dL) (75-99) mg/dL Calcium 6.0 L* (8.4-10.2) mg/dL Ionized Calcium Jordan (4.5-5.3) mg/dL Phosphorus (2.5-4.5) mg/dL Total Bilirubin (0.2-1.3) mg/dL AST (17-59) U/L ALT (4-49) U/L Alkaline Phosphatase <20 L (38-126) U/L Total Protein 2.4 L (6.3-8.2) g/dL Albumin 1.1 L (3.5-5.0) g/dL Crossmatch 06/21/19 06/21/19 06/21/19 Range/Units 05:42 05:44 05:44 WBC 30.4 H (3.8-10.6) k/uL RBC 3.44 L (4.30-5.90) m/uL Hgb 10.7 L D (13.0-17.5) gm/dL Hct 33.3 L (39.0-53.0) % RDW (11.5-15.5) % Plt Count (150-450) k/uL Neutrophils # (1.3-7.7) k/uL Neutrophils # (Manual) 27.00 H (1.3-7.7) k/uL Monocytes # (Manual) 1.52 H (0-1.0) k/uL Metamyelocytes # (Man) 0.30 H (0) k/uL Nucleated RBCs 8 H (0-0) /100 WBC PT (9.0-12.0) sec INR (<1.2) APTT (22.0-30.0) sec ABG pH (7.35-7.45) ABG pCO2 (35-45) mmHg ABG pO2 (83-108) mmHg ABG HCO3 (21-25) mmol/L ABG Total CO2 (19-24) mmol/L ABG O2 Saturation (94-97) % Chloride 119 H (98-107) mmol/L Carbon Dioxide 12 L (22-30) mmol/L BUN 43 H (9-20) mg/dL Creatinine (0.66-1.25) mg/dL Glucose 149 H (74-99) mg/dL POC Glucose (mg/dL) 163 H (75-99) mg/dL Calcium 6.5 L (8.4-10.2) mg/dL Ionized Calcium Jordan (4.5-5.3) mg/dL Phosphorus (2.5-4.5) mg/dL Total Bilirubin (0.2-1.3) mg/dL AST (17-59) U/L ALT (4-49) U/L Alkaline Phosphatase (38-126) U/L Total Protein (6.3-8.2) g/dL Albumin (3.5-5.0) g/dL Crossmatch 06/21/19 06/21/19 06/21/19 Range/Units 06:41 07:38 12:45 WBC 21.8 H (3.8-10.6) k/uL RBC 2.00 L (4.30-5.90) m/uL Hgb 6.4 L* D (13.0-17.5) gm/dL Hct 18.8 L* (39.0-53.0) % RDW 16.1 H (11.5-15.5) % Plt Count 123 L (150-450) k/uL Neutrophils # (1.3-7.7) k/uL Neutrophils # (Manual) (1.3-7.7) k/uL Monocytes # (Manual) (0-1.0) k/uL Metamyelocytes # (Man) (0) k/uL Nucleated RBCs (0-0) /100 WBC PT (9.0-12.0) sec INR (<1.2) APTT (22.0-30.0) sec ABG pH 7.02 L* (7.35-7.45) ABG pCO2 46 H (35-45) mmHg ABG pO2 74 L (83-108) mmHg ABG HCO3 12 L (21-25) mmol/L ABG Total CO2 13 L (19-24) mmol/L ABG O2 Saturation 92.5 L (94-97) % Chloride (98-107) mmol/L Carbon Dioxide (22-30) mmol/L BUN (9-20) mg/dL Creatinine (0.66-1.25) mg/dL Glucose (74-99) mg/dL POC Glucose (mg/dL) 163 H (75-99) mg/dL Calcium (8.4-10.2) mg/dL Ionized Calcium Jordan (4.5-5.3) mg/dL Phosphorus (2.5-4.5) mg/dL Total Bilirubin (0.2-1.3) mg/dL AST (17-59) U/L ALT (4-49) U/L Alkaline Phosphatase (38-126) U/L Total Protein (6.3-8.2) g/dL Albumin (3.5-5.0) g/dL Crossmatch 06/21/19 06/21/19 06/21/19 Range/Units 12:45 12:53 13:12 WBC (3.8-10.6) k/uL RBC (4.30-5.90) m/uL Hgb (13.0-17.5) gm/dL Hct (39.0-53.0) % RDW (11.5-15.5) % Plt Count (150-450) k/uL Neutrophils # (1.3-7.7) k/uL Neutrophils # (Manual) (1.3-7.7) k/uL Monocytes # (Manual) (0-1.0) k/uL Metamyelocytes # (Man) (0) k/uL Nucleated RBCs (0-0) /100 WBC PT (9.0-12.0) sec INR (<1.2) APTT (22.0-30.0) sec ABG pH 7.27 L (7.35-7.45) ABG pCO2 (35-45) mmHg ABG pO2 (83-108) mmHg ABG HCO3 17 L (21-25) mmol/L ABG Total CO2 18 L (19-24) mmol/L ABG O2 Saturation 97.5 H (94-97) % Chloride 118 H (98-107) mmol/L Carbon Dioxide 14 L (22-30) mmol/L BUN 43 H (9-20) mg/dL Creatinine 1.31 H (0.66-1.25) mg/dL Glucose 134 H (74-99) mg/dL POC Glucose (mg/dL) 155 H (75-99) mg/dL Calcium 6.7 L (8.4-10.2) mg/dL Ionized Calcium Jordan 4.2 L (4.5-5.3) mg/dL Phosphorus 7.3 H (2.5-4.5) mg/dL Total Bilirubin 2.3 H (0.2-1.3) mg/dL AST 1784 H (17-59) U/L ALT 733 H (4-49) U/L Alkaline Phosphatase 32 L (38-126) U/L Total Protein 3.5 L (6.3-8.2) g/dL Albumin 1.6 L (3.5-5.0) g/dL Crossmatch Diabetes panel 06/21/19 06/21/19 06/21/19 Range/Units 00:15 05:44 12:45 Sodium 141 144 143 (137-145) mmol/L Potassium 4.6 5.0 5.0 (3.5-5.1) mmol/L Chloride 120 H 119 H 118 H (98-107) mmol/L Carbon Dioxide 9 L* 12 L 14 L (22-30) mmol/L BUN 43 H 43 H 43 H (9-20) mg/dL Creatinine 0.89 0.98 1.31 H (0.66-1.25) mg/dL Glucose 203 H 149 H 134 H (74-99) mg/dL Calcium 6.0 L* 6.5 L 6.7 L (8.4-10.2) mg/dL AST 37 1784 H (17-59) U/L ALT 22 733 H (4-49) U/L Alkaline Phosphatase <20 L 32 L (38-126) U/L Total Protein 2.4 L 3.5 L (6.3-8.2) g/dL Albumin 1.1 L 1.6 L (3.5-5.0) g/dL Calcium panel 06/21/19 06/21/19 06/21/19 Range/Units 00:15 05:44 12:45 Calcium 6.0 L* 6.5 L 6.7 L (8.4-10.2) mg/dL Ionized Calcium Jordan 4.2 L (4.5-5.3) mg/dL Phosphorus 7.3 H (2.5-4.5) mg/dL Albumin 1.1 L 1.6 L (3.5-5.0) g/dL Pituitary panel 06/21/19 06/21/19 06/21/19 Range/Units 00:15 05:44 12:45 Sodium 141 144 143 (137-145) mmol/L Potassium 4.6 5.0 5.0 (3.5-5.1) mmol/L Chloride 120 H 119 H 118 H (98-107) mmol/L Carbon Dioxide 9 L* 12 L 14 L (22-30) mmol/L BUN 43 H 43 H 43 H (9-20) mg/dL Creatinine 0.89 0.98 1.31 H (0.66-1.25) mg/dL Glucose 203 H 149 H 134 H (74-99) mg/dL Calcium 6.0 L* 6.5 L 6.7 L (8.4-10.2) mg/dL Adrenal panel 06/21/19 06/21/19 06/21/19 Range/Units 00:15 05:44 12:45 Sodium 141 144 143 (137-145) mmol/L Potassium 4.6 5.0 5.0 (3.5-5.1) mmol/L Chloride 120 H 119 H 118 H (98-107) mmol/L Carbon Dioxide 9 L* 12 L 14 L (22-30) mmol/L BUN 43 H 43 H 43 H (9-20) mg/dL Creatinine 0.89 0.98 1.31 H (0.66-1.25) mg/dL Glucose 203 H 149 H 134 H (74-99) mg/dL Calcium 6.0 L* 6.5 L 6.7 L (8.4-10.2) mg/dL Total Bilirubin 0.8 2.3 H (0.2-1.3) mg/dL AST 37 1784 H (17-59) U/L ALT 22 733 H (4-49) U/L Alkaline Phosphatase <20 L 32 L (38-126) U/L Total Protein 2.4 L 3.5 L (6.3-8.2) g/dL Albumin 1.1 L 1.6 L (3.5-5.0) g/dL
[2019-06-21 14:21] LABS: Band Neutrophils % 1 %; Lymphocytes # (M) 2.63 k/uL (1.0-4.8); Monocytes # (M) 0.61 k/uL (0-1.0); Neutrophils % (M) 84 %; Nucleated Red Blood Cells 8 /100 WBC (0-0); Polychromasia Present; Total Cells Counted 200; WBC 20.2 k/uL (3.8-10.6)
[2019-06-21 16:30] LABS: Appearance,BF Hazy; Nucleated Cells, Body Fluid 130 /uL; RBC, Body Fluid 20 /uL
[2019-06-21 16:32] LABS: Mononuclear WBC,Body Fluid 89 %; Polynuclear WBC,Body Fluid 11 %; Total Cells Counted,Body Fluid 100
--- NOTE | 2019-06-21 17:44 | PCN ---
PROCEDURE NOTE PROCEDURE: Right radial arterial line placement. PREOPERATIVE DIAGNOSIS: Hemorrhagic shock. POSTOPERATIVE DIAGNOSIS: Hemorrhagic shock. A time-out was completed verifying correct patient, procedure, site, positioning, and implant(s) or special equipment if applicable. Michael's test was performed to ensure adequate perfusion. The patient's right wrist was prepped and draped in sterile fashion. 1% Lidocaine was used to anesthetize the area. An 18G Arrow arterial line was introduced into the radial artery. The catheter was threaded over the guide wire and the needle was removed with appropriate pulsatile blood return. Blood loss was minimal. The catheter was then sutured in place to the skin and a sterile dressing applied. Perfusion to the extremity distal to the point of catheter insertion was checked and found to be adequate. The patient tolerated the procedure well and there were no complications. Right radial arterial line was inserted. There were no immediate complications. The patient tolerated procedure well. Good waveform was noted. Line was flushed and sutured in place. Sterile dressing was applied by the nursing staff. It was connected to the transducer. MMODL / IJN: [id number] /
--- NOTE | 2019-06-21 18:08 | US ---
Therapeutic paracentesis. DATE OF EXAM: 06/21/2019 CLINICAL HISTORY: Ascites The procedure was discussed with the patient. The risks, complications, benefits, and alternatives we re discussed and any questions were answered. Informed consent was obtained. The patient was placed s upine on the ultrasound table and prepped and draped in the usual sterile fashion. All elements of maximal barrier technique were utilized. Under ultrasound guidance, access into the left lower quadrant was obtained, via the paracentesis catheter system and direct ultrasound guidance . Approximately 8.7 liters of straw-colored fluid was removed. The patient was stable throughout the pr ocedure and remained stable upon discharge from Department of Radiology. IMPRESSION: Successful therapeutic paracentesis under ultrasound guidance.
[2019-06-21 18:25] LABS: Glucose,Whole Blood 157 mg/dL (75-99)
[2019-06-21 18:40] LABS: MCHC 33.6 g/dL (31.0-37.0); MCV 92.2 fL (80.0-100.0); Mean Platelet Volume 11.8; RBC 1.81 m/uL (4.30-5.90); WBC 18.2 k/uL (3.8-10.6)
[2019-06-21 18:42] LABS: HCT 16.6 % (39.0-53.0); HGB 5.6 gm/dL (13.0-17.5)
[2019-06-21 18:44] LABS: Ionized Calcium 3.9 mg/dL (4.5-5.3)
[2019-06-21 18:55] LABS: Albumin 1.6 g/dL (3.5-5.0); Total Bilirubin 3.1 mg/dL (0.2-1.3); Total Protein 3.1 g/dL (6.3-8.2)
[2019-06-21 18:59] LABS: INR 1.8 (<1.2); Partial Thromboplastin Time 36.9 sec (22.0-30.0); Prothrombin Time 17.2 sec (9.0-12.0)
[2019-06-21 19:00] LABS: Calcium 6.5 mg/dL (8.4-10.2)
[2019-06-21 19:01] LABS: Platelet Count 70 k/uL (150-450)
[2019-06-21 19:15] LABS: Potassium 4.2 mmol/L (3.5-5.1)
[2019-06-21] MEDS ORDERED: CALCIUM GLUCONATE 2 GM in SODIUM CHLORIDE 0.9% 100 ML IVPB ONE (19:30)
[2019-06-21] MEDS ORDERED: TRANEXAMIC ACID 1,000 MG in SODIUM CHLORIDE 0.9% 100 ML IVPB ONE (20:00)
[2019-06-21 20:53] VITALS: PULSE 115
[2019-06-21 21:47] VITALS: BP 88/56; RESP 26; TEMP 96
[2019-06-22 05:07] LABS: Glucose, BF Source Ascites; Glucose, Body Fluid 145 mg/dL; LDH, Body Fluid Source Ascites
--- NOTE | 2019-06-27 07:36 | CDI ---
Documentation Clarification Form Date: 06/27/19 From: Sintia Marte Phone: If you have a question about this query, please contact Carolee Nayak, [employer] at [phone] between 8am and 5pm. Admit Date: 06/20/19 Discharge Date: 06/21/19 Patient Name: Edwin Salomon Visit Number: [id number] ATTENTION: The Clinical Documentation Specialists (CDI) and [facility] Coding Staff appreciate your assistance in clarifying documentation. Please respond to the clarification below the line at the bottom and electronically sign. The CDI & [facility] Coding staff will review the response and follow-up if needed. Please note: Queries are made part of the Legal Health Record. If you have any questions, please contact the author of this message via ITS. Dear Dr. Bartolo Clemons, The diagnosis of suspected aspiration pneumonia was documented in the Dr Deras's consult, but is not noted in subsequent documentation. 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 Per consult - bloody material being suctioned from ET tube should be for aspiration is high. 06/21 PN-acute hypoxic respiratory failure secondary to massive Gi bleeding and aspiration into the airways Treatment: MV, IV Rocephin, Please clarify if the aspiration pneumonia was Present/active/treated this admission Aspiration pneumonia ruled out Other, please specify Clinically unable to determine Present, treated during admission MTDD
== END 2019-06-21 22:19 | disposition hospice, inpatient (51) | DRG 432 ==
LOC: EC 14:17 → 6NMEDSUR 15:52 → 3SCARD 06-20 08:38 → OBSVTOIN 06-20 10:40 → 2SICU 06-20 11:45
PROVIDERS: ADMIT Family Medicine; ATTEND Family Medicine
PROC: 30230N1 Transfusion of Nonautologous Red Blood Cells into Peripheral Vein, Open Approach (ICD-10-PCS; 2019-06-19)
PROC: 5A1945Z Respiratory Ventilation, 24-96 Consecutive Hours (ICD-10-PCS; 2019-06-20)
PROC: 0BH17EZ Insertion of Endotracheal Airway into Trachea, Via Natural or Artificial Opening (ICD-10-PCS; 2019-06-20)
PROC: 03HY32Z Insertion of Monitoring Device into Upper Artery, Percutaneous Approach (ICD-10-PCS; 2019-06-20)
PROC: 4A133B1 Monitoring of Arterial Pressure, Peripheral, Percutaneous Approach (ICD-10-PCS; 2019-06-20)
PROC: 4A133J1 Monitoring of Arterial Pulse, Peripheral, Percutaneous Approach (ICD-10-PCS; 2019-06-20)
PROC: 0DC68ZZ Extirpation of Matter from Stomach, Via Natural or Artificial Opening Endoscopic (ICD-10-PCS; principal; 2019-06-20 08:35)
PROC: 0W9G3ZZ Drainage of Peritoneal Cavity, Percutaneous Approach (ICD-10-PCS; 2019-06-21)
PROC: 0DJ08ZZ Inspection of Upper Intestinal Tract, Via Natural or Artificial Opening Endoscopic (ICD-10-PCS; 2019-06-21)
PROC: 30230K1 Transfusion of Nonautologous Frozen Plasma into Peripheral Vein, Open Approach (ICD-10-PCS; 2019-06-21)
PROC: 06HM33Z Insertion of Infusion Device into Right Femoral Vein, Percutaneous Approach (ICD-10-PCS; 2019-06-21)
PROC: 03HY32Z Insertion of Monitoring Device into Upper Artery, Percutaneous Approach (ICD-10-PCS; 2019-06-21)
PROC: 4A133J1 Monitoring of Arterial Pulse, Peripheral, Percutaneous Approach (ICD-10-PCS; 2019-06-21)
PROC: 4A133B1 Monitoring of Arterial Pressure, Peripheral, Percutaneous Approach (ICD-10-PCS; 2019-06-21)
DX: K70.31 Alcoholic cirrhosis of liver with ascites (principal); I85.11 Secondary esophageal varices with bleeding; J96.01 Acute respiratory failure with hypoxia; R57.8 Other shock; J69.0 Pneumonitis due to inhalation of food and vomit; D62 Acute posthemorrhagic anemia; K76.6 Portal hypertension; Z51.5 Encounter for palliative care; E88.09 Other disorders of plasma-protein metabolism, not elsewhere classified; F10.21 Alcohol dependence, in remission; K57.90 Diverticulosis of intestine, part unspecified, without perforation or abscess without bleeding; F17.210 Nicotine dependence, cigarettes, uncomplicated; Z79.899 Other long term (current) drug therapy; Z91.048 Other nonmedicinal substance allergy status; Z98.890 Other specified postprocedural states; Z87.01 Personal history of pneumonia (recurrent); Z87.19 Personal history of other diseases of the digestive system
CPT/HCPCS: 36415; 36600; 43235; 43255; 49083; 71045; 76705; 80048; 80053; 82330; 82805; 82945; 83615; 83735; 84100; 84157; 84484; 85025; 85027; 85049; 85610; 85730; 86850; 86900; 86901; 86920; 87070; 87205; 88108; 88305; 89050; 94002; 94003; 96361; 96374; 96375; 96376; 99285

== ENCOUNTER 2019-06-21 20:13 | Inpatient (IN) | payer MEDICAID ==
[2019-06-21] MEDS ORDERED: LORazepam 2 MG/ML INJ IV PRN (20:54)
[2019-06-21] MEDS ORDERED: ACETAMINOPHEN SUPPOSITORY 650 MG SUPP RECTAL PRN (20:54)
[2019-06-21] MEDS ORDERED: MORPHINE SULFATE 2 MG/ML SYRINGE IV PRN (20:54)
[2019-06-21] MEDS ORDERED: MORPHINE SULFATE (100 MG/2 ML) 100 MG in SODIUM CHLORIDE 0.9% 100 ML IV SCH (21:00)
[2019-06-21] MEDS ORDERED: SCOPOLAMINE 1.5MG/72HR PATCH TRANSDERM SCH (21:00)
[2019-06-21] MEDS ORDERED: ATROPINE OPHTH SOLN 1% 5ML BTL SUBLINGUAL PRN (22:29)
== END 2019-06-22 03:24 | disposition expired | DRG 951 ==
LOC: 2SICU 22:20
PROVIDERS: ADMIT Family Medicine; ATTEND Family Medicine
DX: Z51.5 Encounter for palliative care (principal); K92.2 Gastrointestinal hemorrhage, unspecified; D62 Acute posthemorrhagic anemia; Z66 Do not resuscitate; K70.31 Alcoholic cirrhosis of liver with ascites; E88.09 Other disorders of plasma-protein metabolism, not elsewhere classified; F10.21 Alcohol dependence, in remission; F17.210 Nicotine dependence, cigarettes, uncomplicated; Z79.899 Other long term (current) drug therapy; Z87.01 Personal history of pneumonia (recurrent); Z87.19 Personal history of other diseases of the digestive system; Z98.890 Other specified postprocedural states